=== PATIENT | male | born 1955 | race Caucasian/White ===

== ENCOUNTER → 2016-06-19 | Outpatient (CLI) | payer MEDICARE ==
[~2016-06-19] MED LIST: ACDPT PO; ALPR0.5T7 PO; ALPR0.5T72 PO; ASP81CT PO; ASPI-983 PO; ATOR40TA PO; ATOR80TA76 PO; CARV3.12 PO; CARV3.122 PO; CARV6.252 PO; CLOP75TA69 PO; D50KC PO; DIAZ10TA PO; FELO10TA PO; FENO134C PO; FENO145T2 PO; FURO-124 PO; FURO40TA4 PO; GLMP4T PO; HYDR-3922 PO; HYDR12.570 PO; INSU100I23 SQ; INSU100V13 IJ; INSU100V6 SQ; INSU300I SQ; ISM60TCR PO; KCL10CCR PO; KRIL1CAP22 PO; LISI10TA PO; LORTAB 5MG PO; MAGN400T39 PO; MECL-124 PO; MULT-850 PO; NAPR220C11 PO; NITR0.4T12 SL; OMEG1CAP51 PO; RAMI10CA PO; SRTR100T PO; TEST90SO TD; [UNRECOGNIZED DRUG - CODE] IM; [UNRECOGNIZED DRUG - OTHER]
--- NOTE | 2016-06-19 13:33 | Diagnostic Imaging Report ---
INDICATION: Wheezing. Shortness of breath with cough. COMPARISON: 11/20/2015. FINDINGS: There is noted azygos lobe on the right. The lungs are well aerated. There are no infiltrates on today's exam. No masses. The heart is not enlarged. No pulmonary edema. No hilar adenopathy. No pneumothorax or pleural effusion. No air trapping or interstitial lung disease demonstrated. IMPRESSION: No acute abnormalities are present. Dictated by: Dictated on workstation # [id number]
== END ==
LOC: RAD 12:54
PROVIDERS: ATTEND Nurse Practitioner Family
DX: R05 Cough (principal)
CPT/HCPCS: 71020

== ENCOUNTER 2016-09-14 14:16 | Inpatient (IN) | payer MEDICARE ==
[2016-09-14] VITALS (10 sets, daily range): BP systolic 107–176; BP diastolic 59–115
[~2016-09-14] VITALS: Ht 167.6 cm; Wt 88.5 kg
[2016-09-14] MEDS ORDERED: NS IV 1000 ML 2,000 ML ONE (15:11)
[2016-09-14] MEDS ORDERED: NS IV 1000 ML 1,000 ML IV ONE ×2 (15:45)
--- NOTE | 2016-09-14 16:00 | Progress Note-Hospitalist ---
Standard Progress Note Progress Notes/Assess & Plan Date Seen 09/14/16 Time Seen by Provider: 15:58 Assess & Plan/Chief Complaint The patient is a 61-year-old white male diabetic. He presented to Dr. Cuevas' s office earlier today reporting that he had not taken his insulin for several days. He reported nausea and vomiting. Dr. Cuevas's office glucometers capable of reading blood sugars to 600 and his was greater than that. He was admitted here in October 2015 in a similar state of affairs with the hyperosmolar hyperglycemia. It was agreed that the would be sent here to be admitted to the ICU for an insulin drip and fluid. PHYSICAL EXAMINATION: He is in elderly appearing white male. He is alert and oriented. There is no odor of ketones. Lungs are clear to auscultation. CV is regular without murmur. Abdomen is obese. No masses are noted. Extremities are symmetric without edema. Laboratory: Initial blood sugar was 806. Creatinine was 2.52. Sodium 120. CO2 22. These findings are consistent with hyperosmolar diabetes. Impression: Diabetes mellitus type II with hyper osmolarity. 2.hyponatremia. 3.acute on chronic renal insufficiency. 4.CO2 of 22 rules out significant acidosis. Plan: Insulin drip. Aggressive fluid replacement. MARLENI SHARMA MD Sep 14, 2016 16:00
[2016-09-14 16:10] LABS: BASOPHILS # (AUTO) 0.1 10^3/uL (0.0-0.1); BASOPHILS % (AUTO) 1 % (0-10); EOSINOPHILS % (AUTO) 0 % (0-10); LYMPHOCYTES # (AUTO) 1.5 X 10^3 (1.0-4.0); LYMPHOCYTES % (AUTO) 13 % (12-44); MEAN CORPUSCULAR HEMOGLOBIN 30 PG (25-34); MEAN CORPUSCULAR HGB CONC 35 G/DL (32-36); MEAN CORPUSCULAR VOLUME 84 FL (80-99); MEAN PLATELET VOLUME 11.8 FL (7.4-10.4); MONOCYTES # (AUTO) 0.7 X 10^3 (0.0-1.0); MONOCYTES % (AUTO) 6 % (0-12); NEUTROPHILS # (AUTO) 9.1 X 10^3 (1.8-7.8); NEUTROPHILS % (AUTO) 80 % (42-75); PLATELET COUNT 243 10^3/uL (130-400); RED BLOOD COUNT 5.47 10^6/uL (4.35-5.85); RED CELL DISTRIBUTION WIDTH 12.7 % (10.0-14.5); WHITE BLOOD COUNT 11.4 10^3/uL (4.3-11.0)
[2016-09-14] MEDS ORDERED: CATHETER FLUSH 10 ML SYR IV PRN (16:15)
[2016-09-14 16:41] LABS: ALBUMIN 3.9 GM/DL (3.2-4.5); BILIRUBIN,TOTAL 0.7 MG/DL (0.1-1.0); CALCIUM 9.8 MG/DL (8.5-10.1); CREATININE SERUM 2.52 MG/DL (0.60-1.30); POTASSIUM 5.3 MMOL/L (3.6-5.0); TOTAL PROTEIN 7.8 GM/DL (6.4-8.2)
[2016-09-14] MEDS: inSUlin REGULAR TPN/DRIP ONLY 250 UNITS in NORMAL SALINE 250 ML IV SCH (17:02)
[2016-09-14 21:02] LABS: CALCIUM 9.3 MG/DL (8.5-10.1); CREATININE SERUM 2.06 MG/DL (0.60-1.30); POTASSIUM 3.7 MMOL/L (3.6-5.0)
[2016-09-15] VITALS (17 sets, daily range): BP systolic 102–189; BP diastolic 61–100
[2016-09-15 01:10] LABS: CREATININE SERUM 1.81 MG/DL (0.60-1.30); POTASSIUM 3.5 MMOL/L (3.6-5.0)
[2016-09-15] MEDS: inSUlin (REGULAR) HUMAN 1 UNIT/0.01 ML (CHARGE PER UNIT) SC SCH ×4 (02:10→13:30)
[2016-09-15 04:28] LABS: CALCIUM 8.9 MG/DL (8.5-10.1); CREATININE SERUM 1.68 MG/DL (0.60-1.30); POTASSIUM 3.4 MMOL/L (3.6-5.0)
[2016-09-15] MEDS: POTASSIUM CL 10MEQ/50ML IVPB 50 ML IV SCH ×2 (05:00→05:48)
[2016-09-15 05:28] LABS: MAGNESIUM 1.8 MG/DL (1.8-2.4); PHOSPHORUS 3.9 MG/DL (2.3-4.7)
[2016-09-15] MEDS ORDERED: KCL 20 MEQ TAB (K-DUR) PO SCH (06:00)
[2016-09-15] MEDS ORDERED: MAGNESIUM 1 GM/100 ML IVPB 100 ML IV SCH (06:00)
[2016-09-15] MEDS ORDERED: KCL 20 MEQ TAB (K-DUR) PO ONE (06:00)
[2016-09-15 08:37] LABS: CALCIUM 9.1 MG/DL (8.5-10.1); CREATININE SERUM 1.59 MG/DL (0.60-1.30); POTASSIUM 3.7 MMOL/L (3.6-5.0)
[2016-09-15] MEDS ORDERED: ESCI20TA45 PO (11:41)
[2016-09-15] MEDS ORDERED: MECL-106 PO (11:41)
[2016-09-15 12:27] LABS: CALCIUM 9.2 MG/DL (8.5-10.1); CREATININE SERUM 1.72 MG/DL (0.60-1.30); POTASSIUM 3.9 MMOL/L (3.6-5.0)
--- NOTE | 2016-09-15 15:34 | History & Physical-Hospitalist ---
HPI History of Present Illness: HPI/Chief Complaint The patient is a 61-year-old white male who was admitted to the hospitalist service after a phone call from the his community physician Dr. Cuevas. Dr. Cuevas stated that the patient had come to the office reporting feeling ill with nausea and vomiting. He admitted to not having taken insulin in several days. Blood sugar at the office showed it to be greater than 600 which is the limits of the device. He had been admitted here in October 2015 after a similar presentation. His blood sugar at that time was slightly over 1100 without acidosis but confusion as he did not appear to be so confused at this time he was transported to the hospital for direct admission by his mother. He was unable to give any legitimate reason for why he had not been taking his medication. Past history includes a long history of poor control and noncompliance. His previous evidence of coronary artery disease and has multiple coronary stenting. Is also known to have hyperlipidemia and hypertension. Source: patient, family Exam Limitations: no limitations Date Seen 09/15/16 Time Seen by Provider: 15:29 Attending Physician Moe Sharma MD PCP Misael Cuevas DO Referring Physician Date of Admission Sep 14, 2016 at 14:34 Home Medications & Allergies Home Medications Reviewed patient Home Medication Reconciliation Form Allergies Allergies Coded Allergies No Known Drug Allergies (Unverified03/29/15) Past Kpdoffr-Xtooyw-Rzwvjl Hx Patient Social History Alcohol Use: Denies Use Recreational Drug Use: No Smoking Status: Former Smoker Type Used: Cigarettes Physical Abuse Screen: No Sexual Abuse: No Recent Foreign Travel: No Contact w/other who traveled: No Recent Hopitalizations: No Recent Infectious Disease Expo: No Immunizations Up To Date Date of Influenza Vaccine: Jan 29, 2006 Seasonal Allergies Seasonal Allergies: No Surgeries HX Surgeries: Yes (STENTS X6, GB AND APPY AT THE SAME TIME, WISDOM TEETH) Respiratory Hx Respiratory Disorders: No Cardiovascular Hx Cardiovascular Disorders: Yes (CAD, ANGINA, HEART CATH, STENTS X6, AL) Neurological Hx Neurological Disorders: No Reproductive System Hx Reproductive Disorders: No Genitourinary Hx Genitourinary Disorders: Yes ("STATES BAD KIDNEYS DUE TO DIABETES") Gastrointestinal Hx Gastrointestinal Disorders: Yes Musculoskeletal Hx Musculoskeletal Disorders: No Endocrine Hx Endocrine Disorders: Yes HEENT HX ENT Disorders: No Psychosocial Hx Psychiatric Problems: Yes Integumentary HX Skin/Integumentary Disorder: No Blood Transfusions Hx Blood Disorders: No Review of Systems Constitutional: see HPI EENTM: blurred vision Respiratory: no symptoms reported Cardiovascular: no symptoms reported Gastrointestinal: loss of appetite, nausea Genitourinary: frequency Musculoskeletal: muscle weakness Skin: no symptoms reported Psychiatric/Neurological: No Symptoms Reported Physical Exam Physical Exam Vital Signs Vital Sign - Last 12Hours 09/14/16 09/14/16 09/14/16 14:58 15:30 16:12 Temp 98.3 Pulse 78 Resp 10 B/P (MAP) 176/106 Pulse Ox 93 O2 Delivery Room Air Capillary Refill : Less Than 3 Seconds General Appearance: Mild Distress Eyes: Bilateral Eye Normal Inspection HEENT: Normal ENT Inspection Neck: Full Range of Motion, Normal Inspection, Non Tender, Supple, Carotid Bruit Respiratory: Chest Non Tender, Lungs Clear, Normal Breath Sounds, No Accessory Muscle Use, No Respiratory Distress Cardiovascular: Regular Rate, Rhythm, No Edema, No Gallop, No JVD, No Murmur, Normal Peripheral Pulses Extremity: Normal Capillary Refill, Normal Inspection, Normal Range of Motion, Non Tender, No Calf Tenderness, No Pedal Edema Neurologic/Psychiatric: Alert, Oriented x3, No Motor/Sensory Deficits, Normal Mood/Affect, Other (appears mentally slow) Skin: Normal Color, Warm/Dry Results Results/Procedures Lab Laboratory Tests 09/14/16 16:00 09/14/16 20:08 09/15/16 00:26 09/15/16 03:07 09/15/16 08:09 09/15/16 11:59 Assessment/Plan Admission Diagnosis 1.diabetes mellitus with hyper osmolar state. 2.no ketosis or evidence of acidosis. 3.past history of arteriosclerotic heart disease with previous stenting. 4.hypertension by history. 5.hyperlipidemia. Assessment and Plan Rehydration and low-dose insulin drip. Clinical Quality Measures DVT/VTE Risk/Contraindication: Risk Factor Score Per Nursin RFS Level Per Nursing on Admit: 1=Low/No VTE PPX MOE SHARMA MD Sep 15, 2016 15:34
[2016-09-15] MEDS: inSUlin REGULAR TPN/DRIP ONLY 250 UNITS in NORMAL SALINE 250 ML IV SCH (15:39)
[2016-09-15] MEDS ORDERED: ALPRAZolam 0.5 MG (XANAX) TAB PO PRN (15:45)
[2016-09-15] MEDS ORDERED: NITROGLYCERIN SUBLINGUAL 0.4 MG TAB (NITROSTAT) SL PRN (15:45)
[2016-09-15] MEDS: inSUlin ASPART (NovoLOG) 1 UNIT/0.01 ML (CHARGE PER UNIT) SC SCH (17:35)
[2016-09-15] MEDS: inSUlin DETERMIR 1 UNIT/0.01 ML (LEVEMIR) CHARGE PER UNIT SQ SCH (20:55)
[2016-09-15] MEDS: CARVEDILOL 3.125 MG (COREG) TABLET PO SCH (20:57)
[2016-09-15] MEDS ORDERED: ATORVASTATIN 80 MG (LIPITOR) TABLET PO SCH (21:00)
[2016-09-15] MEDS: MECLIZINE 25 MG (ANTIVERT) TAB PO SCH (21:03)
[2016-09-16 06:00] VITALS: BP 136/76
[2016-09-16] MEDS: MECLIZINE 25 MG (ANTIVERT) TAB PO SCH (06:33)
[2016-09-16] MEDS ORDERED: MAGNESIUM OXIDE (MAG-OX)400 MG TAB PO SCH (07:00)
[2016-09-16] MEDS: inSUlin ASPART (NovoLOG) 1 UNIT/0.01 ML (CHARGE PER UNIT) SC SCH (07:29)
[2016-09-16] MEDS: inSUlin DETERMIR 1 UNIT/0.01 ML (LEVEMIR) CHARGE PER UNIT SQ SCH (08:41)
[2016-09-16] MEDS: CARVEDILOL 3.125 MG (COREG) TABLET PO SCH (08:41)
[2016-09-16 08:46] VITALS: BP 186/82
[2016-09-16] MEDS ORDERED: CLOPIDOGREL 75 MG (PLAVIX) TABLET PO SCH (09:00)
[2016-09-16] MEDS ORDERED: FENOFIBRATE 134 MG (LOFIBRA) CAPSULE PO SCH (09:00)
[2016-09-16] MEDS ORDERED: ASPIRIN E.C. 81 MG (ECOTRIN) TAB PO SCH (09:00)
[2016-09-16] MEDS ORDERED: ISOSORBIDE MONONITRATE 60 MG (IMDUR) TAB PO SCH (09:00)
--- NOTE | 2016-09-16 11:06 | Discharge Summary-Hospitalist ---
Diagnosis/Chief Complaint Date of Admission Sep 14, 2016 at 14:34 Date of Discharge Discharge Date: Sep 16, 2016 Admission Diagnosis 1.diabetes mellitus with hyper osmolar state no ketosis or evidence of acidosis. 3.past history of arteriosclerotic heart disease with previous stenting. 4.hypertension by history. 5.hyperlipidemia. Discharge Diagnosis 1.diabetes mellitus with hyper osmolar state no ketosis or evidence of acidosis due to noncompliance with insulin that he has supply at home. 3.past history of arteriosclerotic heart disease with previous stenting. 4.hypertension by history. 5.hyperlipidemia. Reason Hospital Visit/Course The patient is a 61-year-old white male who was admitted to the hospitalist service after a phone call from the his community physician Dr. Cuevas. Dr. Cuevas stated that the patient had come to the office reporting feeling ill with nausea and vomiting. He admitted to not having taken insulin in several days. Blood sugar at the office showed it to be greater than 600 which is the limits of the device. He had been admitted here in October 2015 after a similar presentation. His blood sugar at that time was slightly over 1100 without acidosis but confusion as he did not appear to be so confused at this time he was transported to the hospital for direct admission by his mother. He was unable to give any legitimate reason for why he had not been taking his medication. Past history includes a long history of poor control and noncompliance. His previous evidence of coronary artery disease and has multiple coronary stenting. Is also known to have hyperlipidemia and hypertension. 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 Pt confirms having help at home Pt is confused about how to time his medication. I informed him to spread out his meds over the day so as not to upset his stomach No fever, vital signs stable, pleasant, improved Regular rate and rhythm, clear to auscultation bilaterally No edema normal range of motion Plan: Close follow up with Dr. Cuevas Include information on how to spread out his medications during the day in DC instructions Scribed by Lucia Esquivel under the direct supervision of Dr. Mark. Hospital course: Patient had a brief hospital course he had a similar hospital admission back in October 2015 for the exact same issue he declined to give me a reason why he was not taking his insulin of which he has a plenty of the supply at home. overall he responded to gentle IV insulin drip blood sugars were labile but no hypoglycemic episodes and since he has a supply of insulin at home he was okay with discharge home with close follow-up of Dr. Cuevas. I attempted to call Dr. Cuevas's office but could not confer with him at that time. Discharge Summary Discharge Physical Examination Allergies: Coded Allergies: No Known Drug Allergies (Unverified , 03/29/15) Vitals & I&Os Vital Signs Date Time Temp Pulse Resp B/P (MAP) Pulse Ox O2 Delivery O2 Flow Rate FiO2 09/16/16 08:46 97.7 85 16 186/82 97 Room Air Hospital Course Labs (last 24 hrs) Laboratory Tests 09/15/16 11:59: Sodium Level 131L, Potassium Level 3.9, Chloride Level 99, Carbon Dioxide Level 18L, Anion Gap 14, Blood Urea Nitrogen 29H, Creatinine 1.72H, Estimat Glomerular Filtration Rate 40, BUN/Creatinine Ratio 17, Glucose Level 276H, Calcium Level 9.2 09/15/16 13:17: Glucometer 308H 09/15/16 17:34: Glucometer 216H 09/15/16 20:51: Glucometer 409*H Discharge Home Medications: Active Scripts Active Reported Meclizine HCl 25 Mg Tablet 25 Mg PO Q8H Escitalopram Oxalate 20 Mg Tablet 20 Mg PO DAILY Alprazolam 0.5 Mg Tablet 0.5 Mg PO BID PRN Aspirin EC (Aspirin) 81 Mg Tablet.dr 81 Mg PO DAILY Humalog Kwikpen (Insulin Lispro) 100 Unit/1 Ml Insuln.pen 5 Unit SQ AC DOES NOT ALWAYS USE Valium (Diazepam) 10 Mg Tablet 10 Mg PO HS PRN Coreg (Carvedilol) 3.125 Mg Tablet 3.125 Mg PO BID Isosorbide Mononitrate ER (Isosorbide Mononitrate) 60 Mg Tab 60 Mg PO DAILY Plavix (Clopidogrel Bisulfate) 75 Mg Tablet 75 Mg PO DAILY Magnesium (Magnesium Oxide) 400 Mg Tablet 400 Mg PO DAILY Atorvastatin Calcium 80 Mg Tablet 80 Mg PO HS Fenofibrate (Fenofibrate,Micronized) 134 Mg Capsule 134 Mg PO DAILY Megared Hartwell-3 Krill Oil Sfgl (Krill/Om-3/Dha/Epa/Phospho/Ast) 1 Each Capsule 1 ,000 Mg PO DAILY Toujeo Solostar (Insulin Glargine,Hum.rec.anlog) 300 Unit/1 Ml Insuln.pen 15 Unit SQ BID Vitamin D (Ergocalciferol) 50,000 Unit Capsule 50,000 Unit PO SA Nitroquick (Nitroglycerin) 0.4 Mg Tab.subl 0.4 Mg SL UD PRN Instructions to patient/family Please see electonic discharge instructions given to patient. Clinical Quality Measures DVT/VTE Risk/Contraindication: Risk Factor Score Per Nursin RFS Level Per Nursing on Admit: 1=Low/No VTE PPX TRACEY MARK DO Sep 16, 2016 11:06
--- NOTE | 2016-09-16 14:00 | Physician Query Clarification ---
PQ-Intro New Diagnosis Admission/Discharge Admission Date: Sep 14, 2016 at 14:34 Discharge Date: Sep 16, 2016 at 11:20 The medical record reflects the following clinical scenario: History/Risk Factors: Diabetes type II with hyperosmolar state. Non compliance with insulin Clinical Findings: Sodium level 120 Treatment: IV sodium chloride replacement Question: What condition best reflects the above clinical scenario? Please document below. 1. Hyponatremia. 2. Abnormal sodium level of 120. 3. Other, with explanation of the clinical findings. 4. Clinically undetermined, no explanation for the clinical findings. PHYSICIAN RESPONSE What condition reflects above: Other, explanation/clinical finding (flase low sodium due to high glucose) In responding to this query, please exercise your independent professional judgment. The purpose of this communication is to more accurately reflect the complexity of your patients condition. The fact that a question is asked does not imply that any particular answer is desired or expected. Thank you for your timely response to this clarification. Requestors name: Fely Lang [facility] Phone # ext [phone] or [phone] THIS PHYSICIAN QUERY FORM IS A PERMANENT PART OF THE MEDICAL RECORD FELY LANG Sep 16, 2016 14:00 TRACEY SIDHU DO Sep 16, 2016 15:47
--- OUTSIDE RECORDS SUMMARY | 2016-09-24 19:34 | XMS REPORT | Continuity of Care Document ---
Author Author [facility] Organization [facility] Address Unknown Phone Unavailable Allergies Active Description Code Type Severity Reaction Onset Reported/Identified Relationship to Patient Clinical Status Yes clopidogrel [id number] Drug Allergy Mild HIVES 01/18/2010 Yes No Known Drug Allergies [id number] Drug Allergy Unknown N/ A 03/29/2015 Medications Problems Date Dx Coded Attending Type Code Diagnosis Diagnosed By 02/12/2014 TRAVIS LOWRY [employer] Ot 250.00 02/12/2014 TRAVIS LOWRY [employer] Ot 257.2 02/12/2014 TRAVIS LOWRY [employer] Ot 275.2 02/12/2014 TRAVIS LOWRY [employer] Ot E947.9 03/14/2014 TRAVIS LOWRY [employer] Ot 796.4 04/02/2014 TRAVIS LOWRY [employer] Ot 250.00 04/02/2014 TRAVIS LOWRY [employer] Ot 401.9 04/02/2014 TRAVIS LOWRY [employer] Ot 780.79 04/02/2014 TRAVIS LWORY [employer] Ot V58.69 04/18/2014 Ot 794.39 04/18/2014 Ot V58.69 07/06/2014 TRAVIS LOWRY [employer] Ot 414.00 07/06/2014 TRAVIS LOWRY [employer] Ot 571.8 07/06/2014 TRAVIS LOWRY [employer] Ot 729.1 12/26/2014 ALESIA LOWRY DO Ot 786.09 12/26/2014 ALESIA LOWRY DO Ot 786.7 03/08/2015 TRAVIS LOWRY [employer] Ot E11.9 03/08/2015 TRAVIS LOWRY [employer] Ot E55.9 03/08/2015 TRAVIS LOWRY [employer] Ot E78.5 03/08/2015 TRAVIS LOWRY [employer] Ot K76.0 04/01/2015 RITA CONTEH, LEISA M Ot K57.90 04/01/2015 RITA CONTEH, LEISA M Ot K63.5 04/01/2015 RITA CONTEH, LEISA M Ot K64.8 04/01/2015 RITA CONTEH, LEISA M Ot Z79.02 04/04/2015 RITA CONTEH, LEISA M Ot Z01.818 04/26/2015 ESSENCE BERMUDEZ ALESIA J Ot R19.7 06/18/2015 ESSENCE BERMUDEZ ALESIA J Ot R19.7 DIARRHEA, UNSPECIFIED 06/24/2015 ALESIA LOWRY DO J Ot R19.7 DIARRHEA, UNSPECIFIED 08/16/2015 TRAVIS LOWRY [employer] Ot E11.9 TYPE 2 DIABETES MELLITUS WITHOUT COMPLIC 08/16/2015 TRAVIS LOWRYP Ot N28.9 DISORDER OF KIDNEY AND URETER, UNSPECIFI 11/20/2015 MARLENI SHARMA MD Ot E11.65 TYPE 2 DIABETES MELLITUS WITH HYPERGLYCE 11/20/2015 MARLENI SHARMA MD Ot E66.9 OBESITY, UNSPECIFIED 11/20/2015 MARLENI SHARMA MD Ot E78.5 HYPERLIPIDEMIA, UNSPECIFIED 11/20/2015 MARLENI SHARMA MD Ot E87.1 HYPO-OSMOLALITY AND HYPONATREMIA 11/20/2015 MARLENI SHARMA MD Ot I10 ESSENTIAL (PRIMARY) HYPERTENSION 11/20/2015 MARLENI SHARMA MD Ot I12.9 HYPERTENSIVE CHRONIC KIDNEY DISEASE W ST 11/20/2015 MARLENI SHARMA MD Ot I25.119 ATHSCL HEART DISEASE OF [place] COR ART W 11/20/2015 MARLENI SHARMA MD Ot I25.2 OLD MYOCARDIAL INFARCTION 11/20/2015 MARLENI SHARMA MD Ot N17.9 ACUTE KIDNEY FAILURE, UNSPECIFIED 11/20/2015 MARLENI SHARMA MD Ot N18.9 CHRONIC KIDNEY DISEASE, UNSPECIFIED 11/20/2015 MARLENI SHARMA MD Ot R00.8 OTHER ABNORMALITIES OF HEART BEAT 11/20/2015 MARLENI SHARMA MD Ot Z68.31 BODY MASS INDEX (BMI) 31.0-31.9, ADULT 11/20/2015 EDITH CONTEH, MARLENI Rajan Ot Z91.19 PATIENT'S NONCOMPLIANCE W OT MEDICAL TR 11/20/2015 MARLENI SHARMA MD, Ot Z95.5 PRESENCE OF CORONARY ANGIOPLASTY IMPLANT 07/13/2016 TRAVIS LOWRY [employer] Ot R05 COUGH Procedures Results Test Result Range Complete blood count (CBC) with automated white blood cell (WBC) differential - 11/18/15 16:45 Blood leukocytes automated count (number/volume) 9.8 10*3/ uL 4.3-11.0 Blood erythrocytes automated count (number/volume) 5.33 10*6 /uL 4.35-5.85 Venous blood hemoglobin measurement (mass/volume) 15.8 g/dL 13.3-17.7 Blood hematocrit (volume fraction) 44 % 40-54 Automated erythrocyte mean corpuscular volume 83 [foz_us] 80-99 Automated erythrocyte mean corpuscular hemoglobin (mass per erythrocyte) 30 pg 25-34 Automated erythrocyte mean corpuscular hemoglobin concentration measurement ( mass/volume) 36 g/dL 32-36 Automated erythrocyte distribution width ratio 12.7 % 10.0-14.5 Automated blood platelet count (count/volume) 256 10*3/uL 130-400 Automated blood platelet mean volume measurement 11.5 [foz_ us] 7.4-10.4 Automated blood neutrophils/100 leukocytes 68 % 42-75 Automated blood lymphocytes/100 leukocytes 22 % 12-44 Blood monocytes/100 leukocytes 7 % 0-12 Automated blood eosinophils/100 leukocytes 2 % 0-10 Automated blood basophils/100 leukocytes 1 % 0-10 Blood neutrophils automated count (number/volume) 6.7 10*3 1.8-7.8 Blood lymphocytes automated count (number/volume) 2.2 10*3 1.0-4.0 Blood monocytes automated count (number/volume) 0.7 10*3 0.0-1.0 Automated eosinophil count 0.2 10*3/uL 0.0-0.3 Automated blood basophil count (count/volume) 0.1 10*3/uL 0.0-0.1 PT panel in platelet poor plasma by coagulation assay - 11/18/15 16:45 Prothrombin time (PT) in platelet poor plasma by coagulation assay 13.0 s 12.2-14.7 INR in platelet poor plasma or blood by coagulation assay 1.0 0.8-1.4 Activated partial thromboplastin time (aPTT) in platelet poor plasma bycoagulation assay - 11/18/15 16:45 Activated partial thromboplastin time (aPTT) in platelet poor plasma bycoagulation assay 30 s 24-35 Comprehensive metabolic panel - 11/18/15 16:45 Serum or plasma sodium measurement (moles/volume) 119 mmol/ L 135-145 Serum or plasma potassium measurement (moles/volume) 4.4 mmol/L 3.6-5.0 Serum or plasma chloride measurement (moles/volume) 79 mmol/ L 98-107 Carbon dioxide 21 mmol/L 21-32 Serum or plasma anion gap determination (moles/volume) 19 mmol/L 5-14 Serum or plasma urea nitrogen measurement (mass/volume) 17 mg/dL 7-18 Serum or plasma creatinine measurement (mass/volume) 2.54 mg /dL 0.60-1.30 Serum or plasma urea nitrogen/creatinine mass ratio 7 NRG Serum or plasma creatinine measurement with calculation of estimated glomerular filtration rate 26 NRG Serum or plasma glucose measurement (mass/volume) 917 mg/dL 70-105 Serum or plasma calcium measurement (mass/volume) 9.4 mg/dL 8.5-10.1 Serum or plasma total bilirubin measurement (mass/volume) 0.8 mg/dL 0.1-1.0 Serum or plasma alkaline phosphatase measurement (enzymatic activity/volume) 178 U/L 40-136 Serum or plasma aspartate aminotransferase measurement (enzymatic activity/ volume) 27 U/L 5-34 Serum or plasma alanine aminotransferase measurement (enzymatic activity/volume ) 36 U/L 0-55 Serum or plasma protein measurement (mass/volume) 7.7 g/dL 6.4-8.2 Serum or plasma albumin measurement (mass/volume) 4.0 g/dL 3.2-4.5 Magnesium - 11/18/15 16:45 Magnesium 2.3 mg/dL 1.8-2.4 Serum or plasma troponin i.cardiac measurement (mass/volume) - 11/18/15 16:45 Serum or plasma troponin i.cardiac measurement (mass/volume) < ng/mL <0.30 Myoglobin, serum - 11/18/15 16:45 Myoglobin, serum 150.3 ng/mL 10.0-92.0 Serum or plasma amylase measurement (enzymatic activity/volume) - 11/18/15 16: 45 Serum or plasma amylase measurement (enzymatic activity/volume) 45 U/L 25-125 Lipase - 11/18/15 16:45 Lipase 17 U/L 8-78 Hemoglobin A1c - 11/18/15 16:45 Hemoglobin A1c 13.2 % 4.5-6.2 Capillary blood glucose measurement by glucometer (mass/volume) - 11/18/15 18: 41 Capillary blood glucose measurement by glucometer (mass/volume) > mg/dL 70-110 Whole blood basic metabolic panel - 11/18/15 19:06 Serum or plasma sodium measurement (moles/volume) 124 mmol/ L 135-145 Serum or plasma potassium measurement (moles/volume) 4.0 mmol/L 3.6-5.0 Serum or plasma chloride measurement (moles/volume) 90 mmol/ L 98-107 Carbon dioxide 20 mmol/L 21-32 Serum or plasma anion gap determination (moles/volume) 14 mmol/L 5-14 Serum or plasma urea nitrogen measurement (mass/volume) 16 mg/dL 7-18 Serum or plasma creatinine measurement (mass/volume) 1.98 mg /dL 0.60-1.30 Serum or plasma urea nitrogen/creatinine mass ratio 8 NRG Serum or plasma creatinine measurement with calculation of estimated glomerular filtration rate 34 NRG Serum or plasma glucose measurement (mass/volume) 663 mg/dL 70-105 Serum or plasma calcium measurement (mass/volume) 8.8 mg/dL 8.5-10.1 Capillary blood glucose measurement by glucometer (mass/volume) - 11/18/15 20: 19 Capillary blood glucose measurement by glucometer (mass/volume) 551 mg/dL 70-110 Complete urinalysis with reflex to culture - 11/18/15 20:20 Urine color determination YELLOW NRG Urine clarity determination CLEAR NRG Urine pH measurement by test strip 5 5- 9 Specific gravity of urine by test strip 1.010 1.016-1.022 Urine protein assay by test strip, semi-quantitative NEGATIVE NEGATIVE Urine glucose detection by automated test strip 4+ NEGATIVE Erythrocytes detection in urine sediment by light microscopy NEGATIVE NEGATIVE Urine ketones detection by automated test strip NEGATIVE NEGATIVE Urine nitrite detection by test strip NEGATIVE NEGATIVE Urine total bilirubin detection by test strip NEGATIVE NEGATIVE Urine urobilinogen measurement by automated test strip (mass/volume) NORMAL NORMAL Urine leukocyte esterase detection by dipstick NEGATIVE NEGATIVE Automated urine sediment erythrocyte count by microscopy (number/high power field) NONE NRG Automated urine sediment leukocyte count by microscopy (number/high power field ) NONE NRG Bacteria detection in urine sediment by light microscopy NONE NRG Squamous epithelial cells detection in urine sediment by light microscopy RARE NRG Crystals detection in urine sediment by light microscopy NONE NRG Casts detection in urine sediment by light microscopy NONE NRG Mucus detection in urine sediment by light microscopy NEGATIVE NRG Complete urinalysis with reflex to culture NO NRG Whole blood basic metabolic panel - 11/18/15 20:44 Serum or plasma sodium measurement (moles/volume) 128 mmol/ L 135-145 Serum or plasma potassium measurement (moles/volume) 3.6 mmol/L 3.6-5.0 Serum or plasma chloride measurement (moles/volume) 92 mmol/ L 98-107 Carbon dioxide 21 mmol/L 21-32 Serum or plasma anion gap determination (moles/volume) 15 mmol/L 5-14 Serum or plasma urea nitrogen measurement (mass/volume) 16 mg/dL 7-18 Serum or plasma creatinine measurement (mass/volume) 2.00 mg /dL 0.60-1.30 Serum or plasma urea nitrogen/creatinine mass ratio 8 NRG Serum or plasma creatinine measurement with calculation of estimated glomerular filtration rate 34 NRG Serum or plasma glucose measurement (mass/volume) 527 mg/dL 70-105 Serum or plasma calcium measurement (mass/volume) 8.5 mg/dL 8.5-10.1 Capillary blood glucose measurement by glucometer (mass/volume) - 11/18/15 22: 01 Capillary blood glucose measurement by glucometer (mass/volume) 395 mg/dL 70-110 Capillary blood glucose measurement by glucometer (mass/volume) - 11/18/15 22: 56 Capillary blood glucose measurement by glucometer (mass/volume) 315 mg/dL 70-110 Capillary blood glucose measurement by glucometer (mass/volume) - 11/19/15 00: 16 Capillary blood glucose measurement by glucometer (mass/volume) 209 mg/dL 70-110 Capillary blood glucose measurement by glucometer (mass/volume) - 11/19/15 00: 58 Capillary blood glucose measurement by glucometer (mass/volume) 202 mg/dL 70-110 Whole blood basic metabolic panel - 11/19/15 00:58 Serum or plasma sodium measurement (moles/volume) 132 mmol/ L 135-145 Serum or plasma potassium measurement (moles/volume) 3.1 mmol/L 3.6-5.0 Serum or plasma chloride measurement (moles/volume) 97 mmol/ L 98-107 Carbon dioxide 22 mmol/L 21-32 Serum or plasma anion gap determination (moles/volume) 13 mmol/L 5-14 Serum or plasma urea nitrogen measurement (mass/volume) 13 mg/dL 7-18 Serum or plasma creatinine measurement (mass/volume) 1.53 mg /dL 0.60-1.30 Serum or plasma urea nitrogen/creatinine mass ratio 8 NRG Serum or plasma creatinine measurement with calculation of estimated glomerular filtration rate 46 NRG Serum or plasma glucose measurement (mass/volume) 217 mg/dL 70-105 Serum or plasma calcium measurement (mass/volume) 8.4 mg/dL 8.5-10.1 Capillary blood glucose measurement by glucometer (mass/volume) - 11/19/15 02: 19 Capillary blood glucose measurement by glucometer (mass/volume) 252 mg/dL 70-110 Capillary blood glucose measurement by glucometer (mass/volume) - 11/19/15 03: 03 Capillary blood glucose measurement by glucometer (mass/volume) 219 mg/dL 70-110 Capillary blood glucose measurement by glucometer (mass/volume) - 11/19/15 04: 02 Capillary blood glucose measurement by glucometer (mass/volume) 254 mg/dL 70-110 Complete blood count (CBC) with automated white blood cell (WBC) differential - 11/19/15 04:13 Blood leukocytes automated count (number/volume) 8.3 10*3/ uL 4.3-11.0 Blood erythrocytes automated count (number/volume) 4.67 10*6 /uL 4.35-5.85 Venous blood hemoglobin measurement (mass/volume) 14.0 g/dL 13.3-17.7 Blood hematocrit (volume fraction) 39 % 40-54 Automated erythrocyte mean corpuscular volume 83 [foz_us] 80-99 Automated erythrocyte mean corpuscular hemoglobin (mass per erythrocyte) 30 pg 25-34 Automated erythrocyte mean corpuscular hemoglobin concentration measurement ( mass/volume) 36 g/dL 32-36 Automated erythrocyte distribution width ratio 12.5 % 10.0-14.5 Automated blood platelet count (count/volume) 234 10*3/uL 130-400 Automated blood platelet mean volume measurement 10.9 [foz_ us] 7.4-10.4 Automated blood neutrophils/100 leukocytes 51 % 42-75 Automated blood lymphocytes/100 leukocytes 36 % 12-44 Blood monocytes/100 leukocytes 7 % 0-12 Automated blood eosinophils/100 leukocytes 5 % 0-10 Automated blood basophils/100 leukocytes 1 % 0-10 Blood neutrophils automated count (number/volume) 4.3 10*3 1.8-7.8 Blood lymphocytes automated count (number/volume) 3.0 10*3 1.0-4.0 Blood monocytes automated count (number/volume) 0.5 10*3 0.0-1.0 Automated eosinophil count 0.4 10*3/uL 0.0-0.3 Automated blood basophil count (count/volume) 0.1 10*3/uL 0.0-0.1 Comprehensive metabolic panel - 11/19/15 04:13 Serum or plasma sodium measurement (moles/volume) 132 mmol/ L 135-145 Serum or plasma potassium measurement (moles/volume) 3.7 mmol/L 3.6-5.0 Serum or plasma chloride measurement (moles/volume) 100 mmol /L 98-107 Carbon dioxide 21 mmol/L 21-32 Serum or plasma anion gap determination (moles/volume) 11 mmol/L 5-14 Serum or plasma urea nitrogen measurement (mass/volume) 13 mg/dL 7-18 Serum or plasma creatinine measurement (mass/volume) 1.48 mg /dL 0.60-1.30 Serum or plasma urea nitrogen/creatinine mass ratio 9 NRG Serum or plasma creatinine measurement with calculation of estimated glomerular filtration rate 48 NRG Serum or plasma glucose measurement (mass/volume) 224 mg/dL 70-105 Serum or plasma calcium measurement (mass/volume) 8.4 mg/dL 8.5-10.1 Serum or plasma total bilirubin measurement (mass/volume) 0.7 mg/dL 0.1-1.0 Serum or plasma alkaline phosphatase measurement (enzymatic activity/volume) 117 U/L 40-136 Serum or plasma aspartate aminotransferase measurement (enzymatic activity/ volume) 21 U/L 5-34 Serum or plasma alanine aminotransferase measurement (enzymatic activity/volume ) 26 U/L 0-55 Serum or plasma protein measurement (mass/volume) 6.1 g/dL 6.4-8.2 Serum or plasma albumin measurement (mass/volume) 3.2 g/dL 3.2-4.5 Serum or plasma phosphate measurement (mass/volume) - 11/19/15 04:13 Serum or plasma phosphate measurement (mass/volume) 2.7 mg/ dL 2.3-4.7 Magnesium - 11/19/15 04:13 Magnesium 2.0 mg/dL 1.8-2.4 Lipid 1996 panel - 11/19/15 04:13 Serum or plasma triglyceride measurement (mass/volume) 429 mg/dL <150 Serum or plasma cholesterol measurement (mass/volume) 250 mg /dL < 200 Serum or plasma cholesterol in HDL measurement (mass/volume) 26 mg/dL 40-60 Cholesterol in LDL [mass/volume] in serum or plasma by direct assay 147 mg/dL 1-129 Serum or plasma cholesterol in VLDL measurement (mass/volume) 86 mg/dL 5-40 Capillary blood glucose measurement by glucometer (mass/volume) - 11/19/15 04: 48 Capillary blood glucose measurement by glucometer (mass/volume) 210 mg/dL 70-110 Capillary blood glucose measurement by glucometer (mass/volume) - 11/19/15 06: 32 Capillary blood glucose measurement by glucometer (mass/volume) 200 mg/dL 70-110 Capillary blood glucose measurement by glucometer (mass/volume) - 11/19/15 07: 44 Capillary blood glucose measurement by glucometer (mass/volume) 183 mg/dL 70-110 Whole blood basic metabolic panel - 11/19/15 08:45 Serum or plasma sodium measurement (moles/volume) 132 mmol/ L 135-145 Serum or plasma potassium measurement (moles/volume) 4.3 mmol/L 3.6-5.0 Serum or plasma chloride measurement (moles/volume) 102 mmol /L 98-107 Carbon dioxide 22 mmol/L 21-32 Serum or plasma anion gap determination (moles/volume) 8 mmol/L 5-14 Serum or plasma urea nitrogen measurement (mass/volume) 11 mg/dL 7-18 Serum or plasma creatinine measurement (mass/volume) 1.41 mg /dL 0.60-1.30 Serum or plasma urea nitrogen/creatinine mass ratio 8 NRG Serum or plasma creatinine measurement with calculation of estimated glomerular filtration rate 51 NRG Serum or plasma glucose measurement (mass/volume) 204 mg/dL 70-105 Serum or plasma calcium measurement (mass/volume) 8.2 mg/dL 8.5-10.1 Capillary blood glucose measurement by glucometer (mass/volume) - 11/19/15 09: 58 Capillary blood glucose measurement by glucometer (mass/volume) 214 mg/dL 70-110 Capillary blood glucose measurement by glucometer (mass/volume) - 11/19/15 11: 16 Capillary blood glucose measurement by glucometer (mass/volume) 263 mg/dL 70-110 Capillary blood glucose measurement by glucometer (mass/volume) - 11/19/15 12: 08 Capillary blood glucose measurement by glucometer (mass/volume) 255 mg/dL 70-110 Capillary blood glucose measurement by glucometer (mass/volume) - 11/19/15 16: 26 Capillary blood glucose measurement by glucometer (mass/volume) 242 mg/dL 70-110 Capillary blood glucose measurement by glucometer (mass/volume) - 11/19/15 20: 03 Capillary blood glucose measurement by glucometer (mass/volume) 332 mg/dL 70-110 Complete blood count (CBC) with automated white blood cell (WBC) differential - 11/20/15 05:10 Blood leukocytes automated count (number/volume) 7.5 10*3/ uL 4.3-11.0 Blood erythrocytes automated count (number/volume) 4.44 10*6 /uL 4.35-5.85 Venous blood hemoglobin measurement (mass/volume) 13.3 g/dL 13.3-17.7 Blood hematocrit (volume fraction) 38 % 40-54 Automated erythrocyte mean corpuscular volume 86 [foz_us] 80-99 Automated erythrocyte mean corpuscular hemoglobin (mass per erythrocyte) 30 pg 25-34 Automated erythrocyte mean corpuscular hemoglobin concentration measurement ( mass/volume) 35 g/dL 32-36 Automated erythrocyte distribution width ratio 12.5 % 10.0-14.5 Automated blood platelet count (count/volume) 194 10*3/uL 130-400 Automated blood platelet mean volume measurement 11.3 [foz_ us] 7.4-10.4 Automated blood neutrophils/100 leukocytes 49 % 42-75 Automated blood lymphocytes/100 leukocytes 39 % 12-44 Blood monocytes/100 leukocytes 7 % 0-12 Automated blood eosinophils/100 leukocytes 4 % 0-10 Automated blood basophils/100 leukocytes 1 % 0-10 Blood neutrophils automated count (number/volume) 3.7 10*3 1.8-7.8 Blood lymphocytes automated count (number/volume) 2.9 10*3 1.0-4.0 Blood monocytes automated count (number/volume) 0.5 10*3 0.0-1.0 Automated eosinophil count 0.3 10*3/uL 0.0-0.3 Automated blood basophil count (count/volume) 0.1 10*3/uL 0.0-0.1 Whole blood basic metabolic panel - 11/20/15 05:10 Serum or plasma sodium measurement (moles/volume) 133 mmol/ L 135-145 Serum or plasma potassium measurement (moles/volume) 3.9 mmol/L 3.6-5.0 Serum or plasma chloride measurement (moles/volume) 103 mmol /L 98-107 Carbon dioxide 19 mmol/L 21-32 Serum or plasma anion gap determination (moles/volume) 11 mmol/L 5-14 Serum or plasma urea nitrogen measurement (mass/volume) 15 mg/dL 7-18 Serum or plasma creatinine measurement (mass/volume) 1.52 mg /dL 0.60-1.30 Serum or plasma urea nitrogen/creatinine mass ratio 10 NRG Serum or plasma creatinine measurement with calculation of estimated glomerular filtration rate 47 NRG Serum or plasma glucose measurement (mass/volume) 366 mg/dL 70-105 Serum or plasma calcium measurement (mass/volume) 8.2 mg/dL 8.5-10.1 Capillary blood glucose measurement by glucometer (mass/volume) - 11/20/15 11: 24 Capillary blood glucose measurement by glucometer (mass/volume) 244 mg/dL 70-110 Capillary blood glucose measurement by glucometer (mass/volume) - 09/14/16 15: 22 Capillary blood glucose measurement by glucometer (mass/volume) > mg/dL 70-110 Complete blood count (CBC) with automated white blood cell (WBC) differential - 09/14/16 16:00 Blood leukocytes automated count (number/volume) 11.4 10*3/ uL 4.3-11.0 Blood erythrocytes automated count (number/volume) 5.47 10*6 /uL 4.35-5.85 Venous blood hemoglobin measurement (mass/volume) 16.2 g/dL 13.3-17.7 Blood hematocrit (volume fraction) 46 % 40-54 Automated erythrocyte mean corpuscular volume 84 [foz_us] 80-99 Automated erythrocyte mean corpuscular hemoglobin (mass per erythrocyte) 30 pg 25-34 Automated erythrocyte mean corpuscular hemoglobin concentration measurement ( mass/volume) 35 g/dL 32-36 Automated erythrocyte distribution width ratio 12.7 % 10.0-14.5 Automated blood platelet count (count/volume) 243 10*3/uL 130-400 Automated blood platelet mean volume measurement 11.8 [foz_ us] 7.4-10.4 Automated blood neutrophils/100 leukocytes 80 % 42-75 Automated blood lymphocytes/100 leukocytes 13 % 12-44 Blood monocytes/100 leukocytes 6 % 0-12 Automated blood eosinophils/100 leukocytes 0 % 0-10 Automated blood basophils/100 leukocytes 1 % 0-10 Blood neutrophils automated count (number/volume) 9.1 10*3 1.8-7.8 Blood lymphocytes automated count (number/volume) 1.5 10*3 1.0-4.0 Blood monocytes automated count (number/volume) 0.7 10*3 0.0-1.0 Automated eosinophil count 0.0 10*3/uL 0.0-0.3 Automated blood basophil count (count/volume) 0.1 10*3/uL 0.0-0.1 Comprehensive metabolic panel - 09/14/16 16:00 Serum or plasma sodium measurement (moles/volume) 120 mmol/ L 135-145 Serum or plasma potassium measurement (moles/volume) 5.3 mmol/L 3.6-5.0 Serum or plasma chloride measurement (moles/volume) 84 mmol/ L 98-107 Carbon dioxide 22 mmol/L 21-32 Serum or plasma anion gap determination (moles/volume) 14 mmol/L 5-14 Serum or plasma urea nitrogen measurement (mass/volume) 43 mg/dL 7-18 Serum or plasma creatinine measurement (mass/volume) 2.52 mg /dL 0.60-1.30 Serum or plasma urea nitrogen/creatinine mass ratio 17 NRG Serum or plasma creatinine measurement with calculation of estimated glomerular filtration rate 26 NRG Serum or plasma glucose measurement (mass/volume) 806 mg/dL 70-105 Serum or plasma calcium measurement (mass/volume) 9.8 mg/dL 8.5-10.1 Serum or plasma total bilirubin measurement (mass/volume) 0.7 mg/dL 0.1-1.0 Serum or plasma alkaline phosphatase measurement (enzymatic activity/volume) 92 U/L 40-136 Serum or plasma aspartate aminotransferase measurement (enzymatic activity/ volume) 21 U/L 5-34 Serum or plasma alanine aminotransferase measurement (enzymatic activity/volume ) 28 U/L 0-55 Serum or plasma protein measurement (mass/volume) 7.8 g/dL 6.4-8.2 Serum or plasma albumin measurement (mass/volume) 3.9 g/dL 3.2-4.5 Capillary blood glucose measurement by glucometer (mass/volume) - 09/14/16 17: 34 Capillary blood glucose measurement by glucometer (mass/volume) > mg/dL 70-110 Capillary blood glucose measurement by glucometer (mass/volume) - 09/14/16 18: 29 Capillary blood glucose measurement by glucometer (mass/volume) 583 mg/dL 70-110 Capillary blood glucose measurement by glucometer (mass/volume) - 09/14/16 19: 41 Capillary blood glucose measurement by glucometer (mass/volume) 437 mg/dL 70-110 Whole blood basic metabolic panel - 09/14/16 20:08 Serum or plasma sodium measurement (moles/volume) 130 mmol/ L 135-145 Serum or plasma potassium measurement (moles/volume) 3.7 mmol/L 3.6-5.0 Serum or plasma chloride measurement (moles/volume) 94 mmol/ L 98-107 Carbon dioxide 23 mmol/L 21-32 Serum or plasma anion gap determination (moles/volume) 13 mmol/L 5-14 Serum or plasma urea nitrogen measurement (mass/volume) 38 mg/dL 7-18 Serum or plasma creatinine measurement (mass/volume) 2.06 mg /dL 0.60-1.30 Serum or plasma urea nitrogen/creatinine mass ratio 18 NRG Serum or plasma creatinine measurement with calculation of estimated glomerular filtration rate 33 NRG Serum or plasma glucose measurement (mass/volume) 439 mg/dL 70-105 Serum or plasma calcium measurement (mass/volume) 9.3 mg/dL 8.5-10.1 Capillary blood glucose measurement by glucometer (mass/volume) - 09/14/16 21: 57 Capillary blood glucose measurement by glucometer (mass/volume) 247 mg/dL 70-110 Whole blood basic metabolic panel - 09/15/16 00:26 Serum or plasma sodium measurement (moles/volume) 132 mmol/ L 135-145 Serum or plasma potassium measurement (moles/volume) 3.5 mmol/L 3.6-5.0 Serum or plasma chloride measurement (moles/volume) 96 mmol/ L 98-107 Carbon dioxide 20 mmol/L 21-32 Serum or plasma anion gap determination (moles/volume) 16 mmol/L 5-14 Serum or plasma urea nitrogen measurement (mass/volume) 34 mg/dL 7-18 Serum or plasma creatinine measurement (mass/volume) 1.81 mg /dL 0.60-1.30 Serum or plasma urea nitrogen/creatinine mass ratio 19 NRG Serum or plasma creatinine measurement with calculation of estimated glomerular filtration rate 38 NRG Serum or plasma glucose measurement (mass/volume) 275 mg/dL 70-105 Serum or plasma calcium measurement (mass/volume) 9.0 mg/dL 8.5-10.1 Capillary blood glucose measurement by glucometer (mass/volume) - 09/15/16 02: 06 Capillary blood glucose measurement by glucometer (mass/volume) 274 mg/dL 70-110 Whole blood basic metabolic panel - 09/15/16 03:07 Serum or plasma sodium measurement (moles/volume) 131 mmol/ L 135-145 Serum or plasma potassium measurement (moles/volume) 3.4 mmol/L 3.6-5.0 Serum or plasma chloride measurement (moles/volume) 97 mmol/ L 98-107 Carbon dioxide 18 mmol/L 21-32 Serum or plasma anion gap determination (moles/volume) 16 mmol/L 5-14 Serum or plasma urea nitrogen measurement (mass/volume) 33 mg/dL 7-18 Serum or plasma creatinine measurement (mass/volume) 1.68 mg /dL 0.60-1.30 Serum or plasma urea nitrogen/creatinine mass ratio 20 NRG Serum or plasma creatinine measurement with calculation of estimated glomerular filtration rate 41 NRG Serum or plasma glucose measurement (mass/volume) 283 mg/dL 70-105 Serum or plasma calcium measurement (mass/volume) 8.9 mg/dL 8.5-10.1 Serum or plasma phosphate measurement (mass/volume) - 09/15/16 03:57 Serum or plasma phosphate measurement (mass/volume) 3.9 mg/ dL 2.3-4.7 Magnesium - 09/15/16 03:57 Magnesium 1.8 mg/dL 1.8-2.4 Capillary blood glucose measurement by glucometer (mass/volume) - 09/15/16 07: 59 Capillary blood glucose measurement by glucometer (mass/volume) 185 mg/dL 70-110 Whole blood basic metabolic panel - 09/15/16 08:09 Serum or plasma sodium measurement (moles/volume) 132 mmol/ L 135-145 Serum or plasma potassium measurement (moles/volume) 3.7 mmol/L 3.6-5.0 Serum or plasma chloride measurement (moles/volume) 99 mmol/ L 98-107 Carbon dioxide 20 mmol/L 21-32 Serum or plasma anion gap determination (moles/volume) 13 mmol/L 5-14 Serum or plasma urea nitrogen measurement (mass/volume) 30 mg/dL 7-18 Serum or plasma creatinine measurement (mass/volume) 1.59 mg /dL 0.60-1.30 Serum or plasma urea nitrogen/creatinine mass ratio 19 NRG Serum or plasma creatinine measurement with calculation of estimated glomerular filtration rate 44 NRG Serum or plasma glucose measurement (mass/volume) 181 mg/dL 70-105 Serum or plasma calcium measurement (mass/volume) 9.1 mg/dL 8.5-10.1 Whole blood basic metabolic panel - 09/15/16 11:59 Serum or plasma sodium measurement (moles/volume) 131 mmol/ L 135-145 Serum or plasma potassium measurement (moles/volume) 3.9 mmol/L 3.6-5.0 Serum or plasma chloride measurement (moles/volume) 99 mmol/ L 98-107 Carbon dioxide 18 mmol/L -32 Serum or plasma anion gap determination (moles/volume) 14 mmol/L 5-14 Serum or plasma urea nitrogen measurement (mass/volume) 29 mg/dL 7-18 Serum or plasma creatinine measurement (mass/volume) 1.72 mg /dL 0.60-1.30 Serum or plasma urea nitrogen/creatinine mass ratio 17 NRG Serum or plasma creatinine measurement with calculation of estimated glomerular filtration rate 40 NRG Serum or plasma glucose measurement (mass/volume) 276 mg/dL 70-105 Serum or plasma calcium measurement (mass/volume) 9.2 mg/dL 8.5-10.1 Capillary blood glucose measurement by glucometer (mass/volume) - 09/15/16 13: 17 Capillary blood glucose measurement by glucometer (mass/volume) 308 mg/dL 70-110 Capillary blood glucose measurement by glucometer (mass/volume) - 09/15/16 17: 34 Capillary blood glucose measurement by glucometer (mass/volume) 216 mg/dL 70-110 Capillary blood glucose measurement by glucometer (mass/volume) - 09/15/16 20: 51 Capillary blood glucose measurement by glucometer (mass/volume) 409 mg/dL 70-110 Capillary blood glucose measurement by glucometer (mass/volume) - 09/15/16 23: 45 Capillary blood glucose measurement by glucometer (mass/volume) 251 mg/dL 70-110 Capillary blood glucose measurement by glucometer (mass/volume) - 09/16/16 06: 39 Capillary blood glucose measurement by glucometer (mass/volume) 241 mg/dL 70-110 Encounters ACCT No. Visit Date/Time Discharge Status Pt. Type Provider Facility Loc./Unit Complaint [id number] 09/14/2016 14:34:00 2016 11:20:00 DIS Inpatient MARLENI SHARMA MD [facility] ICU OUT OF CONTROL DIABETES,[facility] [id number] 11/18/2015 17:06:00 2015 14:45:00 DIS Inpatient MARLENI SHARMA MD [facility] 4TH HHNK,CHEST PAIN,RENAL INSUFFICIENCY, [facility] [id number] 03/20/2015 11:15:00 2015 00:01:00 DIS Outpatient ALESIA LOWRY DO [facility] RAD [id number] 04/01/2015 09:21:00 2015 12:30:00 DIS Outpatient LEISA SALIANS MD [facility] SDC [id number] 01/23/2015 13:02:00 2014 23:59:59 CLS Outpatient TRAVIS LOWRY [facility] LAB [id number] 10/18/2014 15:37:00 2014 23:59:59 CLS Outpatient ALESIA LOWRY DO [facility] RAD [id number] 06/25/2014 13:46:00 2014 23:59:59 CLS Outpatient TRAVIS LOWRY [facility] [employer] [facility] LAB [id number] 03/01/2014 14:14:00 2014 23:59:59 CLS Outpatient LOWRYTRAVIS ASH L [employer] [facility] LAB [id number] 12/22/2013 14:27:00 2013 23:59:59 CLS Outpatient [id number] 12/22/2013 14:20:00 2013 23:59:59 CLS Outpatient LOWRYDIANDRAIA L [employer] [facility] LAB [id number] 10/30/2013 14:56:00 2013 23:59:59 CLS Outpatient [id number] 10/30/2013 14:44:00 2013 23:59:59 CLS Outpatient LOWRYDIANDRAIA L [employer] [facility] LAB [id number] 10/27/2013 15:46:00 2013 23:59:59 CLS Outpatient [id number] 08/01/2013 09:44:00 2013 23:59:59 CLS Outpatient [id number] 07/07/2013 06:49:00 2013 23:59:59 CLS Outpatient [id number] 05/18/2013 12:17:00 2013 23:59:59 CLS Outpatient [id number] 06/19/2016 12:54:00 ACT Outpatient ESSENCE TRAVIS L [employer] [facility] RAD COUGH [id number] 07/24/2015 13:42:00 ACT Outpatient DIANDRA LOWRYIA L [employer] [facility] LAB [id number] 06/19/2015 00:09:00 PEN Preadmit ALESIA LOWRY DO [facility] RAD [id number] 03/29/2015 05:39:00 ACT Outpatient RITA CONTEH, LEISA Laguna [facility] PREOP
== END 2016-09-16 11:20 | disposition home or self-care (01) | DRG 639 ==
LOC: ICU 14:34
PROVIDERS: ADMIT Internal Medicine; ATTEND Internal Medicine
DX: E11.00 Type 2 diabetes mellitus with hyperosmolarity without nonketotic hyperglycemic-hyperosmolar coma (NKHHC) (principal); I25.119 Atherosclerotic heart disease of native coronary artery with unspecified angina pectoris; I10 Essential (primary) hypertension; E78.5 Hyperlipidemia, unspecified; I25.2 Old myocardial infarction; Z91.14 Patient's other noncompliance with medication regimen; Z95.5 Presence of coronary angioplasty implant and graft; Z87.891 Personal history of nicotine dependence
CPT/HCPCS: 36415; 80048; 80053; 82962; 83735; 84100; 85025

== ENCOUNTER → 2018-07-01 | Outpatient (CLI) | payer MEDICARE ==
[~2018-07-01] MED LIST changes: +ESCI20TA45 PO; +MECL-106 PO
--- NOTE | 2018-07-01 15:01 | Diagnostic Imaging Report ---
INDICATION: Abdominal cramps, constipation, diarrhea x2.5 weeks.. TECHNIQUE: Two supine view of the abdomen 2:15 p.m. CORRELATION STUDY: 03/20/2015 FINDINGS: Cholecystectomy clips in the right upper quadrant. Mild severity of fecal retention. No evidence for large fecal impaction. No abnormally dilated loops of bowel or findings to suggest high degree bowel obstruction. Vascular calcifications. Multiple calcifications in the pelvis likely phleboliths. IMPRESSION: 1. Nonobstructed appearing bowel gas pattern. Dictated by: Dictated on workstation # [id number]
== END ==
LOC: RAD 13:45
PROVIDERS: ATTEND Nurse Practitioner Family
DX: K59.00 Constipation, unspecified (principal); R19.7 Diarrhea, unspecified; R10.9 Unspecified abdominal pain; Z90.49 Acquired absence of other specified parts of digestive tract
CPT/HCPCS: 74018

== ENCOUNTER 2019-11-05 10:07 | Inpatient (IN) | payer MEDICARE ==
[~2019-11-05] VITALS: Ht 168 cm; Wt 97.3 kg
[2019-11-05] VITALS (7 sets, daily range): BP systolic 110–133; BP diastolic 69–79
[~2019-11-05 10:07] MED LIST changes: +ASPI-1238 PO; -ASPI-983 PO; -MECL-106 PO; +MECL-149 PO
[2019-11-05] MEDS ORDERED: MELATONIN 3 MG TABLET PO PRN (10:15)
[2019-11-05] MEDS ORDERED: polyethylene glycoL POWDER 17 GM (MIRALAX) PACK PO PRN (10:15)
[2019-11-05] MEDS ORDERED: PATIENT MAY USE OWN MEDS, ALL PO SCH (10:15)
[2019-11-05] MEDS ORDERED: ONDANSETRON 4 MG/2 ML (SDV) Z0FRAN IV PRN (10:15)
[2019-11-05] MEDS ORDERED: ACETAMINOPHEN 325 MG TABLET PO PRN (10:15)
[2019-11-05] MEDS ORDERED: morphine INJ 4 MG/ML 1 ML (VIAL/SYRINGE) IV PRN (10:15)
[2019-11-05] MEDS ORDERED: ENOXAPARIN 30 MG/0.3 ML (LOVENOX) SYR SC SCH (10:15)
[2019-11-05] MEDS ORDERED: ANTACID SUSP 30 ML UDC (MYLANTA) PO PRN (10:15)
[2019-11-05] MEDS ORDERED: NITROGLYCERIN 0.4 MG SL TABS BTL 25'S SL PRN (10:15)
--- NOTE | 2019-11-05 11:55 | Consultation-Cardiology ---
HPI-Cardiology Cardiology Consultation Date of Consultation 11/05/19 Date of Admission Time Seen by Provider: 11:51 Indication: chest pain HPI 64 years old gentleman with extensive cardiac history, multiple intervention the past, hypertension, hyperlipidemia, diabetes mellitus, tobaccoism. Has been having chest pain with exertion which has been worsening recently, woke up at 2 a.m. with active chest pain described it as severe in the upper left chest, did not respond to 5 sublingual nitroglycerin. Came to the emergency room. Currently he is chest pain-free. Feeling better. No further episodes of chest pain were reported. Reported that he has been compliant with his medication and still an active smoker. Admits dyspnea on exertion, no palpitation. No pedal edema. No syncope or near syncopal episodes Home Medications & Allergies Allergies: Coded Allergies: No Known Drug Allergies (Unverified , 03/29/15) Home Medication List Reviewed: Yes HHC-Bhfumu-Gofksa Hx Patient Social History Type Used: Cigarettes Recent Foreign Travel: No Recent Infectious Disease Expo: No Recent Hopitalizations: No Immunizations Up To Date Date of Influenza Vaccine: Jan 29, 2006 Past Medical History Discussed below Family Medical History Family Medical Hx Family history of coronary artery disease and hypertension Review of Systems-General Review of Systems Constitutional: no symptoms reported, see HPI EENTM: see HPI, no symptoms reported Respiratory: see HPI; No cough; dyspnea on exertion; No hemoptysis, No orthopnea, No phlegm, No short of breath, No stridor, No wheezing, No other Cardiovascular: see HPI, chest pain; No edema, No Hx of Intervention, No palpitations, No syncope, No vascular heart diseas, No other Gastrointestinal: no symptoms reported, see HPI Genitourinary: no symptoms reported, see HPI Musculoskeletal: no symptoms reported, see HPI Skin: no symptoms reported, see HPI Psychiatric/Neurological: No Symptoms Reported, See HPI Physical Exam Physical Exam Vital Signs Vital Signs - First Documented 11/05/19 11:44 Temp 36.1 Pulse 52 Resp 20 B/P (MAP) 126/78 Pulse Ox 96 O2 Delivery Nasal Cannula O2 Flow Rate 2.00 Capillary Refill : Height, Weight, BMI Height: 5'6.00" Weight: 195lbs. 2.0oz. 88.279801nj; 33.83 BMI Method:Estimated General Appearance: No Apparent Distress, WD/WN Eyes: Bilateral Eye Normal Inspection, Bilateral Eye PERRL, Bilateral Eye EOMI HEENT: PERRL/EOMI, TMs Normal, Normal ENT Inspection, Pharynx Normal, Moist Mucous Membranes Neck: Full Range of Motion, Normal Inspection, Non Tender, Supple, Carotid Bruit Respiratory: Chest Non Tender, Normal Breath Sounds, No Accessory Muscle Use, No Respiratory Distress Cardiovascular: Regular Rate, Rhythm, No Edema, No Gallop, No JVD, No Murmur, Normal Peripheral Pulses Gastrointestinal: Normal Bowel Sounds, No Organomegaly, No Pulsatile Mass, Non Tender, Soft Back: Normal Inspection, No CVA Tenderness, No Vertebral Tenderness Extremity: Normal Capillary Refill, Normal Inspection, Normal Range of Motion, Non Tender, No Calf Tenderness, No Pedal Edema Neurologic/Psychiatric: Alert, Oriented x3, No Motor/Sensory Deficits, Normal Mood/Affect Skin: Normal Color, Warm/Dry Lymphatic: No Adenopathy A/P-Cardiology Admission Diagnosis Non-ST elevation myocardial infarction Coronary artery disease Hypertension Hyperlipidemia Assessment/Plan Non-ST elevation myocardial infarction, active chest pain early in the morning, seen in [place] emergency room responded to nitroglycerin in the emergency room. First troponin was normal, second troponin was elevated. He is not having active chest pain, EKG showed right bundle branch block with ST depression in the anterior lateral leads. Discussed the management plan, recommended cardiac catheterization, patient prefer not to have the procedure done at this time, requesting conservative management. I will start him on aspirin, Plavix and Lovenox. Mild elevation in troponin, no signs of congestive heart failure, planning to evaluate 2-D echocardiogram Coronary artery disease, multiple interventions in the past, had a total of [address] Joya in [place]. Reported that he had a recent stress test with Dr. Joya. Hypertension, on multiple medication, restart home medication monitor blood pressure Hyperlipidemia, restart home medications and monitor lipids Diabetes mellitus, hold metformin for now and continue to monitor blood sugar Chronic renal insufficiency, started on IV fluid. Continue to monitor renal function Tobaccoism, educated on smoking cessation Clinical Quality Measures DVT/VTE Risk/Contraindication: Risk Factor Score Per Nursin RFS Level Per Nursing on Admit: 4+=Very High CB KENNY MD Nov 05, 2019 11:55
--- NOTE | 2019-11-05 12:17 | History & Physical-Hospitalist ---
History of Present Illness HPI/Chief Complaint Pt is a 64yoCM with a PMH of CAD with 12 stents, IDDMII, HTN, HLD, ANA LILIA not on CPAP, CKD who presented to outside ER due to chest pain. He states that he was sleeping when he was awoken by chest pain at 2 a.m. He states that he decided to seek care when it didn't resolve with nitroglycerin 4 at home. He presented to the emergency department and was treated with DuoNeb because he was wheezing and another nitroglycerin which improved his pain. He is currently chest pain- free. His EKG per the report showed no acute changes. His troponin was found to be 0.433 on admission. At this time he is currently chest pain-free. He was mildly hypoxic at 87 percent and was placed on 2 Lpm and has done well. Further workup for chest x-ray as no acute findings. He was given 2.5 mg of IV metoprolol as. He was transferred here for cardiac evaluation. describes the pain as sharp in nature that started on the left side of his chest and moved to the Center and up towards his jaw. He was short of breath and diaphoretic with it. He is unsure if he was nauseous. He states it felt like his previous symptoms when his needed stents but more severe than that. Source: patient Date Seen 11/05/19 Time Seen by a Provider: 12:10 Attending Physician Fatmata Connor MD PCP Misael Cuevas DO Referring Physician Date of Admission Nov 05, 2019 at 11:23 Home Medications & Allergies Home Medications Reviewed patient Home Medication Reconciliation performed by pharmacy medication reconciliations help desk technician and/or nursing. Patients Allergies have been reviewed. Allergies Allergies Coded Allergies No Known Drug Allergies (Unverified03/29/15) Past Gfiafkx-Urojqt-Bfqclo Hx Patient Social History Former Smoker, Quit: Jul 23, 2016 Type Used: Cigarettes Recent Foreign Travel: No Contact w/other who traveled: No Recent Hopitalizations: No Recent Infectious Disease Expo: No Immunizations Up To Date Date of Influenza Vaccine: Jan 29, 2006 Seasonal Allergies Seasonal Allergies: No Past Medical History Currently Using CPAP: No Currently Using BIPAP: No Reproductive: No History of Blood Disorders: No Review of Systems Constitutional: No chills, No fever, No malaise EENTM: no symptoms reported Respiratory: No cough; short of breath Cardiovascular: see HPI, chest pain; No edema; Hx of Intervention; No palpitations, No syncope Gastrointestinal: No abdominal pain; nausea (chronic in AM), vomiting (chronic in AM) Genitourinary: No dysuria, No frequency Musculoskeletal: no symptoms reported Skin: no symptoms reported Psychiatric/Neurological: No Symptoms Reported Physical Exam Physical Exam Vital Signs Vital Signs - First Documented 11/05/19 11:44 Temp 36.1 Pulse 52 Resp 20 B/P (MAP) 126/78 Pulse Ox 96 O2 Delivery Nasal Cannula O2 Flow Rate 2.00 Capillary Refill : Height, Weight, BMI Height: 5'6.00" Weight: 195lbs. 2.0oz. 88.560540th; 33.83 BMI Method:Estimated General Appearance: No Apparent Distress, Chronically ill, Obese HEENT: PERRL/EOMI, Moist Mucous Membranes; No Scleral Icterus (L), No Scleral Icterus (R) Neck: Normal Inspection, Supple; No JVD Respiratory: Lungs Clear, No Respiratory Distress Cardiovascular: Regular Rate, Rhythm, No Murmur Gastrointestinal: Normal Bowel Sounds, Non Tender, Soft Extremity: Normal Capillary Refill, No Calf Tenderness, No Pedal Edema Neurologic/Psychiatric: Alert, Oriented x3, Normal Mood/Affect Skin: Normal Color, Warm/Dry Results Results/Procedures Labs Patient resulted labs reviewed. Assessment/Plan Admission Diagnosis NSTEMI Admission Status: Inpatient Order (span 2 midnights) Reason for Inpatient Admission: see below Assessment and Plan NSTEMI CAD HTN HLD Now chest pain free troponin 0.433 on arrival but reportedly 3.05 on second check there ASA given in ER Nitro prn chest pain Lovenox and Plavix ordered here Patient requesting conservative measures and declined recommended cath per cardiology note Monitor on telemetry Echo ordered CKD Creatinine 2.21 at OSH Will trend Unsure of baseline Will start IVF IDDMII Will resume home Levemir and start SSI ANA LILIA Is noncompliant with CPAP DVT ppx: Lovenox as above Clinical Quality Measures DVT/VTE Risk/Contraindication: Risk Factor Score Per Nursin RFS Level Per Nursing on Admit: 4+=Very High FATMATA CONNOR MD Nov 05, 2019 12:17
[2019-11-05] MEDS: inSUlin ASPART (NovoLOG) 1 UNIT/0.01 ML (CHARGE PER UNIT) SC SCH ×3 (12:47→21:18)
[2019-11-05] MEDS: ENOXAPARIN 100 MG/1 ML (LOVENOX) SYR SC SCH (12:47)
[2019-11-05] MEDS: NS IV 1000 ML 1,000 ML IV SCH ×2 (12:48→22:23)
--- NOTE | 2019-11-05 12:48 | NUR ---
THIS NURSE CLARIFIED WITH RADHA FERNANDEZ AT [facility] THAT PT RECEIVED 100 MG OF LOVENOX IN ER.
[2019-11-05] MEDS: CARVEDILOL 3.125 MG (COREG) TABLET PO SCH (21:28)
--- NOTE | 2019-11-05 21:30 | NUR ---
WHEN TAKING PATIENT'S VITAL SIGNS, IT NOTED PATIENT'S HEART RATE 42, ON THE TELEMONITOR THEY ARE RANGING 50-60S. DR. KENNY AWARE, ORDER RECEIVED TO HOLD COREG MEDICATION FOR THE EVENING. PATIENT VOICES NO CONCERNS OR COMPLAINTS AT THIS TIME, STATES FEELS FINE. WILL CONTINUE TO MONITOR.
[2019-11-06 00:32] VITALS: BP 117/67
[2019-11-06] MEDS: ENOXAPARIN 100 MG/1 ML (LOVENOX) SYR SC SCH (00:34)
[2019-11-06] MEDS: NS IV 1000 ML 1,000 ML IV SCH (02:26)
[2019-11-06 03:28] LABS: HEMOGLOBIN 14.2 G/DL (13.3-17.7); MEAN PLATELET VOLUME 10.7 FL (7.4-10.4); WHITE BLOOD COUNT 8.7 10^3/uL (4.3-11.0)
[2019-11-06 03:42] LABS: ALBUMIN 3.9 GM/DL (3.2-4.5); POTASSIUM 4.3 MMOL/L (3.6-5.0)
[2019-11-06 03:43] LABS: CALCIUM 8.9 MG/DL (8.5-10.1)
[2019-11-06 03:44] LABS: TOTAL PROTEIN 7.2 GM/DL (6.4-8.2)
[2019-11-06 03:46] LABS: BILIRUBIN,TOTAL 0.3 MG/DL (0.1-1.0)
[2019-11-06 03:48] LABS: CREATININE SERUM 2.24 MG/DL (0.60-1.30)
[2019-11-06 03:51] LABS: MAGNESIUM 1.9 MG/DL (1.6-2.4)
[2019-11-06 04:21] VITALS: BP 140/72
[2019-11-06] MEDS: inSUlin ASPART (NovoLOG) 1 UNIT/0.01 ML (CHARGE PER UNIT) SC SCH (04:57)
[2019-11-06] MEDS: CARVEDILOL 3.125 MG (COREG) TABLET PO SCH (07:44)
[2019-11-06] MEDS ORDERED: LIDOCAINE 1% INJ 20 ML 20 ML VIAL ONE (07:51)
[2019-11-06] MEDS ORDERED: HEParin (CATH LAB) 1,000 ML IV ONE (07:51)
[2019-11-06] MEDS ORDERED: NS IV 1000 ML 1,000 ML ONE (07:51)
[2019-11-06] MEDS ORDERED: fentaNYL INJECTION 100 MCG/2 ML AMP ONE (07:54)
[2019-11-06] MEDS ORDERED: MIDAZOLAM 5 MG/5 ML (VERSED) VIAL ONE (07:54)
[2019-11-06] MEDS ORDERED: HEParin 1000 UNIT/ML (10ML VIAL) FOR BOLUS ONE (07:54)
[2019-11-06 08:00] VITALS: BP 159/84
[2019-11-06] MEDS ORDERED: ISOSORBIDE MONONITRATE 60 MG (IMDUR) TAB PO SCH (09:00)
[2019-11-06] MEDS ORDERED: CLOPIDOGREL 75 MG (PLAVIX) TABLET PO SCH (09:00)
[2019-11-06] MEDS ORDERED: ASPIRIN E.C. 81 MG (ECOTRIN) TAB PO SCH ×2 (09:00)
--- NOTE | 2019-11-06 09:22 | NUR ---
Report called to REBECCA Jarrell who will assume care at [facility]. EMS called at this time for transportation. VSS. Will continue to monitor.
--- NOTE | 2019-11-06 09:30 | Cardiology Progress Note ---
Subjective Date Seen by Provider: Nov 06, 2019 Time Seen by Provider: 09:28 Subjective/Events-last exam Patient is laying down in bed, feeling better, denied any active pain. No chest pain was reported Review of Systems General: No Chills, No Night Sweats, No Fatigue, No Malaise, No Appetite, No Other HEENT: No Head Aches, No Visual Changes, No Eye Pain, No Ear Pain, No Dysphasia, No Sinus Congestion, No Post Nasal Drip, No Sore Throat, No Other Pulmonary: No Dyspnea, No Cough, No Pleuritic Chest Pain, No Other Cardiovascular: No: Chest Pain, Palpitations, Orthopnea, Paroxysmal Noc. Dyspnea, Edema, Lt Headedness, Other Objective-Cardiology Exam Last Set of Vital Signs Vital Signs 11/05/19 11:45 O2 Flow Rate 1.00 Capillary Refill : Less Than 3 Seconds I&O Intake and Output 11/06/19 00:00 Intake Total 340 ml Output Total 500 ml Balance -160 ml Intake Oral 340 ml Output Urine Total 500 ml # Voids 1 Daily Weight Change No No General: Alert, Oriented X3, Cooperative HEENT: Atraumatic, PERRLA Neck: Supple, No JVD, No Thyromegaly Lungs: Clear to Auscultation, Normal Air Movement Heart: Regular Rate, Normal S1, Normal S2, No Murmurs Abdomen: Normal Bowel Sounds, Soft, No Tenderness, No Hepatosplenomegaly, No Masses Extremities: No Clubbing, No Cyanosis, No Edema, Normal Pulses, No Tenderness/Swelling Skin: No Rashes, No Breakdown, No Significant Lesion Neuro: Normal Gait, Normal Speech, Strength at 5/5 X4 Ext, Normal Tone, Sensation Intact Psych/Mental Status: Mental Status NL, Mood NL Results Lab Laboratory Tests 11/06/19 03:15 A/P-Cardiology Admission Diagnosis Non-ST elevation myocardial infarction Coronary artery disease Hypertension Hyperlipidemia Assessment/Plan Non-ST elevation myocardial infarction, active chest pain early in the morning, seen in [place] emergency room responded to nitroglycerin in the emergency room. Elevated troponin with EKG changes in the anterior lateral leads, patient refused cardiac catheterization yesterday, had a long discussion with the patient again today, requested to call [facility]. I discussed the management plan with Dr. Joya who accepted the patient. Arrangement will be made to transfer Congestive heart failure, acute left ventricular systolic dysfunction, ischemic cardiomyopathy with anterior wall hypokinesia, ejection fraction 40 percent Coronary artery disease, multiple interventions in the past, had a total of [address] Joya in [place]. Reported that he had a recent stress test with Dr. Joya. Hypertension, on multiple medication, restart home medication monitor blood pressure Hyperlipidemia, poorly controlled, started on Lipitor 80 mg daily Diabetes mellitus, hold metformin for now and continue to monitor blood sugar Chronic renal insufficiency, continue with IV fluid and monitor Tobaccoism, educated on smoking cessation Clinical Quality Measures DVT/VTE Risk/Contraindication: Risk Factor Score Per Nursin RFS Level Per Nursing on Admit: 4+=Very High CB KENNY MD Nov 06, 2019 09:30
--- NOTE | 2019-11-06 10:08 | NUR ---
EMS at bedside at this time to transfer pt to [place] room 224. Personal belongings with pt at time of transfer.
--- NOTE | 2019-11-06 10:47 | Discharge Summary ---
Discharge Summary Hospital Course Was the Problem List Reviewed?: Yes Problems/Dx: (1) NSTEMI (non-ST elevation myocardial infarction) Status: Acute Hospital Course Date of Admission: Nov 05, 2019 at 11:23 Admission Diagnosis : NSTEMI Family Physician/Provider: Misael Cuevas DO Date of Discharge: 11/06/19 Discharge Diagnosis: NSTEMI Hospital Course: Francisco Mckenna is a 64-year-old male with past medical history of coronary artery disease with coronary stenting who presented with chest pain. Cardiology was consulted and assisted with his care. His troponin was slightly elevated and trended up significantly. Cardiology recommended left heart catheterization. He requested transfer to [facility] in [place] and this was arranged. Labs and Pending Lab Test: Laboratory Tests 11/05/19 12:08: Glucometer 143H 11/05/19 16:07: Glucometer 158H 11/05/19 21:17: Glucometer 150H 11/06/19 03:15: White Blood Count 8.7, Red Blood Count 4.94, Hemoglobin 14.2, Hematocrit 45, Mean Corpuscular Volume 90, Mean Corpuscular Hemoglobin 29, Mean Corpuscular Hemoglobin Concent 32, Red Cell Distribution Width 14.6H, Platelet Count 271, Mean Platelet Volume 10.7H, Sodium Level 138, Potassium Level 4.3, Chloride Level 102, Carbon Dioxide Level 24, Anion Gap 12, Blood Urea Nitrogen 27H, Creatinine 2.24H, Estimat Glomerular Filtration Rate 29, BUN/Creatinine Ratio 12, Glucose Level 137H, Calcium Level 8.9, Corrected Calcium 9.0, Magnesium Level 1.9, Total Bilirubin 0.3, Aspartate Amino Transf (AST/SGOT) 100H, Alanine Aminotransferase (ALT/SGPT) 27, Alkaline Phosphatase 48, Troponin I 30.942*H, Total Protein 7.2, Albumin 3.9, Triglycerides Level 225H, Cholesterol Level 240H , LDL Cholesterol Direct 203H, VLDL Cholesterol 45H, HDL Cholesterol 34L Home Meds Active Reported Meclizine HCl 25 Mg Tablet 25 Mg PO Q8H Escitalopram Oxalate 20 Mg Tablet 20 Mg PO DAILY Alprazolam 0.5 Mg Tablet 0.5 Mg PO BID PRN Aspirin EC (Aspirin) 81 Mg Tablet.dr 81 Mg PO DAILY Humalog Kwikpen (Insulin Lispro) 100 Unit/1 Ml Insuln.pen 5 Unit SQ AC DOES NOT ALWAYS USE Valium (Diazepam) 10 Mg Tablet 10 Mg PO HS PRN Coreg (Carvedilol) 3.125 Mg Tablet 3.125 Mg PO BID Isosorbide Mononitrate ER (Isosorbide Mononitrate) 60 Mg Tab 30 Mg PO DAILY Plavix (Clopidogrel Bisulfate) 75 Mg Tablet 75 Mg PO DAILY Magnesium (Magnesium Oxide) 400 Mg Tablet 400 Mg PO DAILY Atorvastatin Calcium 80 Mg Tablet 80 Mg PO HS Fenofibrate (Fenofibrate,Micronized) 134 Mg Capsule 134 Mg PO DAILY Megared [place]-3 Krill Oil Sfgl (Krill/Om-3/Dha/Epa/Phospho/Ast) 1 Each Capsule 1,000 Mg PO DAILY Toujeo Solostar (Insulin Glargine,Hum.rec.anlog) 300 Unit/1 Ml Insuln.pen 15 Unit SQ BID Vitamin D (Ergocalciferol) 50,000 Unit Capsule 50,000 Unit PO SA Nitroquick (Nitroglycerin) 0.4 Mg Tab.subl 0.4 Mg SL UD PRN Assessment/Pt Instructions patient transferred to [facility] in [place] for cardiac catheterization. Discharge Planning: <30 minutes discharge planning Discharge Instructions Discharge Diet: Low Sodium Diet Activity as Tolerated: Yes Pneumonia Vaccine Order Indica: Yes Consultations Cardiology Discharge Physical Examination Vital Signs Vital Signs Date Time Temp Pulse Resp B/P (MAP) Pulse Ox O2 Delivery O2 Flow Rate FiO2 11/06/19 09:00 Room Air 11/06/19 08:00 36.4 64 17 159/84 (109) 94 11/05/19 11:45 1.00 General Appearance: No Apparent Distress, Obese Respiratory: Lungs Clear, Normal Breath Sounds, No Respiratory Distress Cardiovascular: Regular Rate, Rhythm, No Edema, No Murmur Gastrointestinal: Normal Bowel Sounds, Non Tender, Soft Extremity: Normal Inspection, Non Tender Skin: Normal Color, Warm/Dry Neurologic/Psychiatric: Alert, Oriented x3, No Motor/Sensory Deficits, Normal Mood/Affect Allergies: Coded Allergies: No Known Drug Allergies (Unverified , 03/29/15) Discharge Summary Date of Admission Nov 05, 2019 at 11:23 Date of Discharge Discharge Date: Nov 06, 2019 Discharge Time: 10:42 Admission Diagnosis NSTEMI Consults/Procedures Consulations Cardiology Discharge Diagnosis (1) NSTEMI (non-ST elevation myocardial infarction) Status: Acute Clinical Quality Measures DVT/VTE Risk/Contraindication: Risk Factor Score Per Nursin RFS Level Per Nursing on Admit: 4+=Very High XUAN HURLEY MD Nov 06, 2019 10:42
== END 2019-11-06 10:08 | disposition short-term general hospital (02) | DRG 280 ==
LOC: CSD 11:23
PROVIDERS: ADMIT Family Medicine; ATTEND Family Medicine
DX: I21.4 Non-ST elevation (NSTEMI) myocardial infarction (principal); I50.21 Acute systolic (congestive) heart failure; I13.0 Hypertensive heart and chronic kidney disease with heart failure and stage 1 through stage 4 chronic kidney disease, or unspecified chronic kidney disease; N18.9 Chronic kidney disease, unspecified; I25.10 Atherosclerotic heart disease of native coronary artery without angina pectoris; E11.22 Type 2 diabetes mellitus with diabetic chronic kidney disease; I25.5 Ischemic cardiomyopathy; E78.5 Hyperlipidemia, unspecified; E66.9 Obesity, unspecified; G47.33 Obstructive sleep apnea (adult) (pediatric); R09.02 Hypoxemia; F17.200 Nicotine dependence, unspecified, uncomplicated; I45.10 Unspecified right bundle-branch block; Z95.5 Presence of coronary angioplasty implant and graft; Z68.33 Body mass index [BMI] 33.0-33.9, adult; Z79.84 Long term (current) use of oral hypoglycemic drugs; Z91.19 Patient's noncompliance with other medical treatment and regimen
CPT/HCPCS: 36415; 80053; 80061; 82962; 83735; 84484; 85027; 93005; 93306

== ENCOUNTER 2020-02-24 14:33 | Emergency (ER) | payer MEDICARE ==
[~2020-02-24] VITALS: Ht 167.6 cm; Wt 93.8 kg
[2020-02-24] MEDS ORDERED: fentaNYL INJECTION 100 MCG/2 ML AMP ONE (14:43)
[2020-02-24 14:54] LABS: BASOPHILS % (AUTO) 0 % (0-10); EOSINOPHILS % (AUTO) 0 % (0-10); HEMATOCRIT 51 % (40-54); HEMOGLOBIN 16.5 g/dL (13.3-17.7); LYMPHOCYTES # (AUTO) 0.9 10^3/uL (1.0-4.0); LYMPHOCYTES % (AUTO) 5 % (12-44); MEAN CORPUSCULAR HEMOGLOBIN 29 pg (25-34); MEAN CORPUSCULAR HGB CONC 32 g/dL (32-36); MEAN CORPUSCULAR VOLUME 89 fL (80-99); MEAN PLATELET VOLUME 11.1 fL (9.0-12.2); MONOCYTES # (AUTO) 1.6 10^3/uL (0.0-1.0); MONOCYTES % (AUTO) 8 % (0-12); NEUTROPHILS # (AUTO) 17.8 10^3/uL (1.8-7.8); NEUTROPHILS % (AUTO) 87 % (42-75); PLATELET COUNT 369 10^3/uL (130-400); WHITE BLOOD COUNT 20.5 10^3/uL (4.3-11.0)
[2020-02-24 14:57] LABS: ALBUMIN 3.6 GM/DL (3.2-4.5); POTASSIUM 5.2 MMOL/L (3.6-5.0)
--- NOTE | 2020-02-24 14:57 | ED General ---
General Stated Complaint: FALL IN BATH Source of Information: Patient Exam Limitations: No Limitations History of Present Illness Date Seen by Provider: Feb 24, 2020 Time Seen by Provider: 14:52 Initial Comments Pt is a 64yoCM with a PMH of CAD with 12 stents, IDDMII, HTN, HLD, ANA LILIA not on CPAP, CKD who comes To ER by EMS from home after he was found by a family member in his bathtub. He fell in the bathtub 3 days ago and has been laying facedown in an empty bathtub for 3 days. He has pressure sores on his face, pain to his right shoulder left arm left side of his abdomen. He has several pressure wounds on him. He has some bruising and erythema to the face. EMS reported a heart rate of 130s atrial fibrillation and blood pressure initially of 84/60. Timing/Duration: 3-4 Days Severity: Moderate Allergies and Home Medications Allergies Coded Allergies: No Known Drug Allergies (Unverified , 03/29/15) Home Medications Alprazolam 0.5 Mg Tablet, 0.5 MG PO BID PRN for ANXIETY, (Reported) Aspirin 81 Mg Tablet.dr, 81 MG PO DAILY, (Reported) Atorvastatin Calcium 80 Mg Tablet, 80 MG PO HS, (Reported) Carvedilol 3.125 Mg Tablet, 3.125 MG PO BID, (Reported) Clopidogrel Bisulfate 75 Mg Tablet, 75 MG PO DAILY, (Reported) Diazepam 10 Mg Tablet, 10 MG PO HS PRN for INSOMNIA, (Reported) Ergocalciferol 50,000 Unit Capsule, 50,000 UNIT PO Sa, (Reported) Escitalopram Oxalate 20 Mg Tablet, 20 MG PO DAILY, (Reported) Fenofibrate,Micronized 134 Mg Capsule, 134 MG PO DAILY, (Reported) Insulin Glargine,Hum.rec.anlog 300 Unit/1 Ml Insuln.pen, 15 UNIT SQ BID, (Reported) Insulin Lispro 100 Unit/1 Ml Insuln.pen, 5 UNIT SQ AC, (Reported) DOES NOT ALWAYS USE Isosorbide Mononitrate 60 Mg Tab, 30 MG PO DAILY, (Reported) Krill/Om-3/Dha/Epa/Phospho/Ast 1 Each Capsule, 1,000 MG PO DAILY, (Reported) Magnesium Oxide 400 Mg Tablet, 400 MG PO DAILY, (Reported) Meclizine HCl 25 Mg Tablet, 25 MG PO Q8H, (Reported) Nitroglycerin 0.4 Mg Tab.subl, 0.4 MG SL UD PRN for CHEST PAIN, (Reported) Patient Home Medication List Home Medication List Reviewed: Yes Review of Systems Review of Systems Constitutional: see HPI EENTM: see HPI Respiratory: no symptoms reported Cardiovascular: no symptoms reported Genitourinary: no symptoms reported Musculoskeletal: see HPI Skin: see HPI Psychiatric/Neurological: No Symptoms Reported Hematologic/Lymphatic: No Symptoms Reported Past Xvoczsz-Fdzafo-Bwuykm Hx Patient Social History Type Used: Cigarettes Former Smoker, Quit: Jul 23, 2016 Recent Hopitalizations: No Immunizations Up To Date Date of Influenza Vaccine: Jan 29, 2006 Seasonal Allergies Seasonal Allergies: No Past Medical History Surgeries: Yes Respiratory: No Currently Using CPAP: No Currently Using BIPAP: No Cardiac: Yes Coronary Artery Disease, High Cholesterol, Hypertension Neurological: No Reproductive Disorders: No Genitourinary: No Renal Failure Gastrointestinal: No Musculoskeletal: No Endocrine: Yes Diabetes, Insulin dep HEENT: No Cancer: No Psychosocial: No Integumentary: No Blood Disorders: No Physical Exam Vital Signs Vital Signs - First Documented 02/24/20 14:33 Temp 36.2 Pulse 124 B/P (MAP) 128/86 (100) Capillary Refill : Height, Weight, BMI Height: 5'6.00" Weight: 195lbs. 2.1oz. [age]yo; 33.83 BMI Method:Estimated General Appearance: No Apparent Distress, WD/WN, Other (Alert and oriented knows he is at the hospital and can recall his medication list. On arrival here his heart rate is 134 atrial fibrillation blood pressure 137/91, rectal temperature 37.1. He has pressure sore to the left side of the face, crusting on the lips, a few broken front teeth. He has a right shoulder that he keeps externally rotated, maceration to the left anterior chest wall and to the dorsal left hand, necrotic area of skin to the anterior medial right thigh and a similar to the distal anterior left thigh. The right toes are cyanotic. There is no palpable pulse in either foot.) Eyes: Bilateral Eye Normal Inspection, Bilateral Eye PERRL, Bilateral Eye EOMI (.) HEENT: Other (Erythema and scabbing of various parts of the face.) Neck: Full Range of Motion, Normal Inspection Respiratory: No Accessory Muscle Use, No Respiratory Distress Cardiovascular: Regular Rate, Rhythm, Normal Peripheral Pulses Gastrointestinal: Normal Bowel Sounds, Non Tender, Soft Extremity: Slow Capillary Refill, Other (See above; there is cyanosis to the right first and second toe. There is a lacy reticular type rash to the medial and dorsal aspect of the right foot. I am not able to Doppler any blood flow in the dorsalis pedis artery or posterior tibial artery of either foot. However, the left foot has normal color despite being cold as well. I suspect given his history of 12 coronary stents he has quite a bit of vasculopathy and I do not know how much of this is his chronic peripheral arterial disease) Neurologic/Psychiatric: Alert, Oriented x3 Skin: Normal Color, Warm/Dry, Other (Lesions as above) Focused Exam Lactate Level 02/24/20 14:35: Lactic Acid Level 4.03*H 02/24/20 16:30: Lactic Acid Level 3.36*H Lactic Acid Level Laboratory Tests Test 02/24/20 14:35 02/24/20 16:30 Lactic Acid Level 4.03 MMOL/L (0.50-2.00) *H 3.36 MMOL/L (0.50-2.00) *H Procedures/Interventions Lumen: triple Central Line Procedure: betadine prep, sterile drapes applied, sterile dressing applied Position: internal jugular (L) Anesthesia: Lidocaine Volume Anesthetic (ccs): 4 Post Position: sutured, good blood return, position confirmed w/ CXR Progress/Results/Core Measures Suspected Sepsis SIRS Temperature: Pulse: Respiratory Rate: Laboratory Tests 02/24/20 14:35: White Blood Count 20.5H Blood Pressure / Mean: 02/24/20 14:35: Lactic Acid Level 4.03*H 02/24/20 16:30: Lactic Acid Level 3.36*H Laboratory Tests 02/24/20 14:35: Creatinine 2.12H, INR Comment 1.2, Platelet Count 369, Total Bilirubin 0.9 Results/Orders Lab Results Laboratory Tests Test 02/24/20 14:35 02/24/20 14:50 02/24/20 16:30 02/24/20 16:31 Range/Units White Blood Count 20.5 H 4.3-11.0 10^3/uL Red Blood Count 5.75 H 4.30-5.52 10^6/uL Hemoglobin 16.5 13.3-17.7 g/dL Hematocrit 51 40-54 % Mean Corpuscular Volume 89 80-99 fL Mean Corpuscular Hemoglobin 29 25-34 pg Mean Corpuscular Hemoglobin Concent 32 32-36 g/dL Red Cell Distribution Width 15.4 H 10.0-14.5 % Platelet Count 369 130-400 10^3/uL Mean Platelet Volume 11.1 9.0-12.2 fL Immature Granulocyte % (Auto) 1 % Neutrophils (%) (Auto) 87 H 42-75 % Lymphocytes (%) (Auto) 5 L 12-44 % Monocytes (%) (Auto) 8 0-12 % Eosinophils (%) (Auto) 0 0-10 % Basophils (%) (Auto) 0 0-10 % Neutrophils # (Auto) 17.8 H 1.8-7.8 10^3/uL Lymphocytes # (Auto) 0.9 L 1.0-4.0 10^3/uL Monocytes # (Auto) 1.6 H 0.0-1.0 10^3/uL Eosinophils # (Auto) 0.0 0.0-0.3 10^3/uL Basophils # (Auto) 0.0 0.0-0.1 10^3/uL Immature Granulocyte # (Auto) 0.1 0.0-0.1 10^3/uL Neutrophils % (Manual) 92 % Lymphocytes % (Manual) 4 % Monocytes % (Manual) 4 % Eosinophils % (Manual) 0 % Basophils % (Manual) 0 % Band Neutrophils 0 % Blood Morphology Comment NORMAL Prothrombin Time 15.8 H 12.2-14.7 SEC INR Comment 1.2 0.8-1.4 Activated Partial Thromboplast Time 30 24-35 SEC Urine Color YELLOW Urine Clarity CLEAR Urine pH 5.5 5-9 Urine Specific [place] >=1.030 1.016-1.022 Urine Protein 3+ H NEGATIVE Urine Glucose (UA) 2+ H NEGATIVE Urine Ketones NEGATIVE NEGATIVE Urine Nitrite NEGATIVE NEGATIVE Urine Bilirubin 1+ H NEGATIVE Urine Urobilinogen 0.2 < = 1.0 MG/DL Urine Leukocyte Esterase NEGATIVE NEGATIVE Urine RBC (Auto) 3+ H NEGATIVE Urine RBC 0-2 /HPF Urine WBC 0-2 /HPF Urine Squamous Epithelial Cells 0-2 /HPF Urine Crystals NONE /LPF Urine Bacteria FEW H /HPF Urine Casts NONE /LPF Urine Mucus NEGATIVE /LPF Urine Culture Indicated NO Sodium Level 140 135-145 MMOL/L Potassium Level 5.2 H 3.6-5.0 MMOL/L Chloride Level 105 98-107 MMOL/L Carbon Dioxide Level 18 L 21-32 MMOL/L Anion Gap 17 H 5-14 MMOL/L Blood Urea Nitrogen 65 H 7-18 MG/DL Creatinine 2.12 H 0.60-1.30 MG/DL Estimat Glomerular Filtration Rate 31 BUN/Creatinine Ratio 31 Glucose Level 407 *H 70-105 MG/DL Lactic Acid Level 4.03 *H 3.36 *H 0.50-2.00 MMOL/L Calcium Level 9.2 8.5-10.1 MG/DL Corrected Calcium 9.5 8.5-10.1 MG/DL Total Bilirubin 0.9 0.1-1.0 MG/DL Aspartate Amino Transf (AST/SGOT) 177 H 5-34 U/L Alanine Aminotransferase (ALT/SGPT) 94 H 0-55 U/L Alkaline Phosphatase 56 40-136 U/L Total Creatine Kinase 04325 H 30-200 U/L Myoglobin 35613.0 H 10.0-92.0 NG/ML Troponin I 0.544 *H <0.028 NG/ML Total Protein 7.6 6.4-8.2 GM/DL Albumin 3.6 3.2-4.5 GM/DL Urine Opiates Screen NEGATIVE NEGATIVE Urine Oxycodone Screen NEGATIVE NEGATIVE Urine Methadone Screen NEGATIVE NEGATIVE Urine Propoxyphene Screen NEGATIVE NEGATIVE Urine Barbiturates Screen NEGATIVE NEGATIVE Ur Tricyclic Antidepressants Screen NEGATIVE NEGATIVE Urine Phencyclidine Screen NEGATIVE NEGATIVE Urine Amphetamines Screen NEGATIVE NEGATIVE Urine Methamphetamines Screen NEGATIVE NEGATIVE Urine Benzodiazepines Screen POSITIVE H NEGATIVE Urine Cocaine Screen NEGATIVE NEGATIVE Urine Cannabinoids Screen POSITIVE H NEGATIVE Blood Gas Puncture Site LEFT RADIAL Blood Gas Patient Temperature 37.1 Arterial Blood pH 7.36 L 7.37-7.43 Arterial Blood Partial Pressure CO2 37 35-45 MMHG Arterial Blood Partial Pressure O2 64 L 79-93 MMHG Arterial Blood HCO3 20 L 23-27 MMOL/L Arterial Blood Total CO2 21.1 21.0-31.0 MMOL/L Arterial Blood Oxygen Saturation 87 L 94-100 % Arterial Blood Base Excess -4.5 L -2.5-2.5 MMOL/L Rafael Test POSITIVE Blood Gas Ventilator Setting NO Blood Gas Inspired Oxygen N/A Coronavirus 2019 (JOSE CARLOS) Negative Negative My Orders Orders - 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 Cbc With Automated Diff (02/24/20 14:46) Comprehensive Metabolic Panel (02/24/20 14:46) Ua Culture If Indicated (02/24/20 14:46) Drug Screen Stat (Urine) (02/24/20 14:46) Creatine Kinase (02/24/20 14:46) Myoglobin Serum (02/24/20 14:46) Blood Culture (02/24/20 14:46) Lactic Acid Analyzer (02/24/20 14:46) Ekg Tracing (02/24/20 14:46) Troponin I (02/24/20 14:46) Ct Head/Face/Cervical Wo (02/24/20 14:46) Ct Chest/Abdomen/Pelvis Wo (02/24/20 14:46) Shoulder, Right, 3 Views (02/24/20 14:46) Forearm, Left, 2 Views (02/24/20 14:46) Humerus, Left, 2 Views (02/24/20 14:46) Protime With Inr (02/24/20 14:49) Partial Thromboplastin Time (02/24/20 14:49) Fentanyl Injection (Sublimaze Injection (02/24/20 15:00) Lactated Ringers (Lr 1000 Ml Iv Solution (02/24/20 15:00) Ondansetron Injection (Zofran Injectio (02/24/20 15:00) Arterial Blood Gas (02/24/20 14:54) Manual Differential (02/24/20 14:35) Ns (Ivpb) (Sodium C... W/Diltiazem Iv Fo (02/24/20 16:00) Diltiazem Injection (Cardizem Injection) (02/24/20 16:00) Enoxaparin Injection (Lovenox Injection) (02/24/20 16:00) Heparin Drip 74434 Unit/500ml (Heparin (02/24/20 16:30) Heparin (Bolus Per Protocol) (Heparin (B (02/24/20 16:30) Protime With Inr (02/24/20 16:16) Cbc No Diff (02/24/20 16:16) Cbc No Diff (02/27/20 05:00) Cbc No Diff (03/01/20 05:00) Platelet Count (02/25/20 05:00) Platelet Count (02/26/20 05:00) Platelet Count (02/27/20 05:00) Platelet Count (02/28/20 05:00) Platelet Count (02/29/20 05:00) Platelet Count (03/01/20 05:00) Platelet Count (03/02/20 05:00) Platelet Count (03/03/20 05:00) Platelet Count (03/04/20 05:00) Platelet Count (03/05/20 05:00) Partial Thromboplastin Time (02/24/20 20:16) Protime With Inr (02/27/20 05:00) Protime With Inr (02/28/20 05:00) Protime With Inr (02/29/20 05:00) Protime With Inr (03/01/20 05:00) Protime With Inr (03/02/20 05:00) Protime With Inr (03/03/20 05:00) Protime With Inr (03/04/20 05:00) Protime With Inr (03/05/20 05:00) Protime With Inr (03/06/20 05:00) Protime With Inr (03/07/20 05:00) Initiate Heparin Full Protocol (02/24/20 16:16) Covid 19 Inhouse Test (02/24/20 16:31) Chest 1 View, Ap/Pa Only (02/24/20 17:17) Medications Given in ED Current Medications Medications Dose Ordered Sig/Ramirez Route Start Time Stop Time Status Last Admin Dose Admin Diltiazem HCl 10 mg ONCE ONCE IVP 02/24/20 16:00 02/24/20 16:01 DC 02/24/20 16:14 10 MG Fentanyl Citrate 50 mcg ONCE ONCE IVP 02/24/20 15:00 02/24/20 15:01 DC 02/24/20 14:47 50 MCG Vital Signs/I&O 02/24/20 02/24/20 14:33 16:36 Temp 36.2 Pulse 124 124 B/P (MAP) 128/86 (100) 133/112 Capillary Refill : Diagnostic Imaging Diagonstic Imaging: Xray, CT Comments NAME: [facility] REC#: [id number] PT STATUS: REG ER : 1955 PHYSICIAN: HARSHA SILVERMAN APRN ADMIT DATE: 02/24/20/ER Draft Date of Exam:02/24/20 CT HEAD/FACE/CERVICAL WO PROCEDURE: CT head, face, and cervical spine without contrast. TECHNIQUE: Multiple contiguous axial images were obtained through the head, neck, and facial bones without the use of intravenous contrast. Sagittal and coronal reformations through the cervical spine and facial bones were also performed. Auto Exposure Controls were utilized during the CT exam to meet ALARA standards for radiation dose reduction. INDICATION: Fall. COMPARISON: No prior study is available for comparison. CT head: Ventricles and sulci are within normal limits. No sulcal effacement or midline shift is identified. No acute intra-axial or extra-axial hemorrhage is detected. Cisterns are patent. Visualized paranasal sinuses are clear. IMPRESSION: No acute intracranial process is detected. CT cervical spine: Curvature is normal. There is retrolisthesis of C3 on C4. Severe multilevel degenerative disc disease is noted. There is significant disc space narrowing and marginal osteophyte formation at all levels of the cervical spine. No fracture is identified. Odontoid is intact. IMPRESSION: Severe cervical spondylosis. No acute bony abnormality is detected. CT face: The mandible is intact. Zygomatic arches are intact. The maxillary sinus cerda and nasal bones appear intact. No orbital wall fracture is seen. IMPRESSION: No facial bone fracture is detected. Dictated on workstation # [id number] Dict: 02/24/20 1541 Trans: 02/24/20 1546 [facility] [id number] Interpreted by: TRAVIS LOW MD Electronically signed by: NAME: [facility] REC#: [id number] PT STATUS: REG ER : 1955 PHYSICIAN: HARSHA SILVERMAN APRN ADMIT DATE: 02/24/20/ER Draft Date of Exam:02/24/20 CT CHEST/ABDOMEN/PELVIS WO PROCEDURE: CT chest, abdomen, and pelvis without contrast. TECHNIQUE: Multiple contiguous axial images were obtained through the chest, abdomen, and pelvis without the use of intravenous contrast. Auto Exposure Controls were utilized during the CT exam to meet ALARA standards for radiation dose reduction. INDICATION: Trauma, fall. CT chest: The heart is enlarged. There are coronary arterial calcifications. No pericardial fluid or hemothorax is identified. There is parenchymal consolidation in the left upper lobe. Contusion cannot be excluded. There is no pneumothorax. Bony structures appear intact. IMPRESSION: There is an area of consolidation in the left upper lobe consistent with pneumonia or contusion. No other significant abnormality is seen. CT abdomen and pelvis: Liver and spleen are unremarkable. Pancreas is unremarkable. No adrenal hematoma or renal injury is seen. Aorta is unremarkable. There is no hemoperitoneum. Bowel loops are unremarkable. Bony structures appear nonacute. IMPRESSION: No evidence of abdominal or pelvic visceral injury. Dictated on workstation # [id number] Dict: 02/24/20 1544 Trans: 02/24/20 1552 PJE [id number] Interpreted by: TRAVIS LOW MD Electronically signed by: NAME: [facility] REC#: [id number] PT STATUS: REG ER : 1955 PHYSICIAN: HARSHA SILVERMAN APRN ADMIT DATE: 02/24/20/ER Draft Date of Exam:02/24/20 SHOULDER, RIGHT, 3 VIEWS INDICATION: Right shoulder pain. TIME OF EXAM: 3:08 p.m. EXAMINATION: Three views of the right shoulder were obtained. FINDINGS: Glenohumeral and acromioclavicular alignment are normal. Acromiohumeral space is normal. No fracture or dislocation is seen. There does appear to be glenohumeral joint degenerative changes with joint space narrowing. There are subchondral cysts in the glenoid. IMPRESSION: Degenerative changes of the glenohumeral joint. No acute bony abnormality is detected. Dictated on workstation # [id number] Dict: 02/24/20 1536 Trans: 02/24/20 1540 PJE [id number] Interpreted by: TRAVIS LOW MD Electronically signed by: NAME: [facility] REC#: [id number] PT STATUS: REG ER : 1955 PHYSICIAN: HARSHA SILVERMAN APRN ADMIT DATE: 02/24/20/ER Draft Date of Exam:02/24/20 FOREARM, LEFT, 2 VIEWS INDICATION: Fall with left arm pain. TIME OF EXAM: 3:14 p.m. EXAMINATION: Multiple views of the left forearm were obtained. FINDINGS: Alignment at the elbow and wrist is normal. Radius and ulna are intact. No fracture is seen. IMPRESSION: No acute bony abnormality is detected. Dictated on workstation # [id number] Dict: 02/24/20 1538 Trans: 02/24/20 1541 PJ [id number] Interpreted by: TRAVIS LOW MD Electronically signed by: NAME: [facility] REC#: [id number] PT STATUS: [facility] ER : 1955 PHYSICIAN: HARSHA SILVERMAN APRN ADMIT DATE: 02/24/20/ER Draft Date of Exam:02/24/20 HUMERUS, LEFT, 2 VIEWS INDICATION: Left arm pain and injury. TIME OF EXAM: 3:12 p.m. EXAMINATION: Two views of the humerus demonstrate normal alignment at the shoulder and elbow. Humerus is intact. No fracture is seen. IMPRESSION: No acute bony abnormality is detected. Dictated on workstation # [id number] Dict: 02/24/20 1537 Trans: 02/24/20 1540 PJE [id number] Interpreted by: TRAVIS LOW MD Electronically signed by: Departure Communication (Admissions) 2165-patient needed a second IV but we were unable to establish 1. We are giving heparin drip. Given Cardizem drip at 5 mg an hour. Decided to proceed with central line placement ultrasound-guided on the left. He converted to normal sinus rhythm with a rate of 74 during this. Oxygen is 99% on 2 L. He is now receiving his third liter of LR. Given the concern for possible acute arterial occlusion of the right leg versus a complex regional pain syndrome with the associated reticular lacy rash on top of chronic peripheral arterial disease is a possibility. I spoke with Dr. Samuel from cardiology here. Recommends transfer to a facility with vascular services. Impression Primary Impression: Rhabdomyolysis Additional Impressions: Atrial fibrillation with RVR Arterial occlusion Disposition: XFER SHT-TRM HOSP Condition: Critical Departure-Patient Inst. Referrals: ALESIA LOWRY DO (PCP/Family) Primary Care Physician HARSHA SILVERMAN APRN Feb 24, 2020 14:56
[2020-02-24 14:58] LABS: CALCIUM 9.2 MG/DL (8.5-10.1)
[2020-02-24 14:59] LABS: CLARITY,URINE CLEAR; COLOR,URINE YELLOW; GLUCOSE, URINE (UA) 2+ (NEGATIVE); KETONES,URINE NEGATIVE (NEGATIVE); LEUKOCYTE ESTERASE ,URINE NEGATIVE (NEGATIVE); NITRITE,URINE NEGATIVE (NEGATIVE); PH,URINE 5.5 (5-9); PROTEIN,URINE 3+ (NEGATIVE); TOTAL PROTEIN 7.6 GM/DL (6.4-8.2)
[2020-02-24 14:59] LABS: ABG BASE EXCESS -4.5 MMOL/L (-2.5-2.5); ABG OXYGEN SATURATION 87 % (94-100); ABG PCO2 37 MMHG (35-45); ABG PH 7.36 (7.37-7.43); ABG PO2 64 MMHG (79-93); ABG TCO2 21.1 MMOL/L (21.0-31.0)
[2020-02-24 15:00] LABS: ALLENS TEST POSITIVE; PATIENT TEMP 37.1; VENTILATOR NO
[2020-02-24] MEDS ORDERED: fentaNYL INJECTION 100 MCG/2 ML AMP IVP ONE (15:00)
[2020-02-24] MEDS ORDERED: ONDANSETRON 4 MG/2 ML (SDV) Z0FRAN IVP ONE (15:00)
[2020-02-24 15:01] LABS: BILIRUBIN,TOTAL 0.9 MG/DL (0.1-1.0)
[2020-02-24 15:03] LABS: CREATININE SERUM 2.12 MG/DL (0.60-1.30)
[2020-02-24 15:11] LABS: BACTERIA,URINE FEW /HPF; BILIRUBIN,URINE 1+ (NEGATIVE); RBC,URINE 0-2 /HPF; SQUAMOUS EPITHELIAL CELL,UR 0-2 /HPF; WBC,URINE 0-2 /HPF
[2020-02-24 15:14] LABS: AMPHETAMINE SCREEN, URINE NEGATIVE (NEGATIVE); BARBITURATE SCREEN URINE NEGATIVE (NEGATIVE); BENZODIAZEPINES SCREEN URINE POSITIVE (NEGATIVE); CANNABINOID SCREEN, URINE POSITIVE (NEGATIVE); COCAINE SCREEN URINE NEGATIVE (NEGATIVE); METHADONE STAT NEGATIVE (NEGATIVE); METHAMPHETAMINE SCREEN URINE S NEGATIVE (NEGATIVE); OPIATE SCREEN URINE NEGATIVE (NEGATIVE); OXYCODONE STAT NEGATIVE (NEGATIVE); PROPOXYPHENE STAT NEGATIVE (NEGATIVE); TRICYCLIC ANTIDEPRESSANTS SCRE NEGATIVE (NEGATIVE)
[2020-02-24 15:16] LABS: BAND NEUTROPHILS 0 %; BASOPHILS % (MANUAL) 0 %; EOSINOPHILS % (MANUAL) 0 %; LYMPHOCYTES % (MANUAL) 4 %; MONOCYTES % (MANUAL) 4 %; NEUTROPHILS % (MANUAL) 92 %; RBC MORPH NORMAL
[2020-02-24 15:19] LABS: INR 1.2 (0.8-1.4); PROTHROMBIN TIME PATIENT 15.8 SEC (12.2-14.7)
--- NOTE | 2020-02-24 15:40 | Diagnostic Imaging Report ---
INDICATION: Right shoulder pain. TIME OF EXAM: 3:08 p.m. EXAMINATION: Three views of the right shoulder were obtained. FINDINGS: Glenohumeral and acromioclavicular alignment are normal. Acromiohumeral space is normal. No fracture or dislocation is seen. There does appear to be glenohumeral joint degenerative changes with joint space narrowing. There are subchondral cysts in the glenoid. IMPRESSION: Degenerative changes of the glenohumeral joint. No acute bony abnormality is detected. Dictated by: Dictated on workstation # [id number]
--- NOTE | 2020-02-24 15:41 | Diagnostic Imaging Report ---
INDICATION: Left arm pain and injury. TIME OF EXAM: 3:12 p.m. EXAMINATION: Two views of the humerus demonstrate normal alignment at the shoulder and elbow. Humerus is intact. No fracture is seen. IMPRESSION: No acute bony abnormality is detected. Dictated by: Dictated on workstation # [id number]
--- NOTE | 2020-02-24 15:42 | Diagnostic Imaging Report ---
INDICATION: Fall with left arm pain. TIME OF EXAM: 3:14 p.m. EXAMINATION: Multiple views of the left forearm were obtained. FINDINGS: Alignment at the elbow and wrist is normal. Radius and ulna are intact. No fracture is seen. IMPRESSION: No acute bony abnormality is detected. Dictated by: Dictated on workstation # [id number]
--- NOTE | 2020-02-24 15:46 | Diagnostic Imaging Report ---
PROCEDURE: CT head, face, and cervical spine without contrast. TECHNIQUE: Multiple contiguous axial images were obtained through the head, neck, and facial bones without the use of intravenous contrast. Sagittal and coronal reformations through the cervical spine and facial bones were also performed. Auto Exposure Controls were utilized during the CT exam to meet ALARA standards for radiation dose reduction. INDICATION: Fall. COMPARISON: No prior study is available for comparison. CT head: Ventricles and sulci are within normal limits. No sulcal effacement or midline shift is identified. No acute intra-axial or extra-axial hemorrhage is detected. Cisterns are patent. Visualized paranasal sinuses are clear. IMPRESSION: No acute intracranial process is detected. CT cervical spine: Curvature is normal. There is retrolisthesis of C3 on C4. Severe multilevel degenerative disc disease is noted. There is significant disc space narrowing and marginal osteophyte formation at all levels of the cervical spine. No fracture is identified. Odontoid is intact. IMPRESSION: Severe cervical spondylosis. No acute bony abnormality is detected. CT face: The mandible is intact. Zygomatic arches are intact. The maxillary sinus cerda and nasal bones appear intact. No orbital wall fracture is seen. IMPRESSION: No facial bone fracture is detected. Dictated by: Dictated on workstation # [id number]
[2020-02-24] MEDS: LACTATED RINGERS 1,000 ML IV SCH ×4 (15:47→18:32)
--- NOTE | 2020-02-24 15:54 | Diagnostic Imaging Report ---
PROCEDURE: CT chest, abdomen, and pelvis without contrast. TECHNIQUE: Multiple contiguous axial images were obtained through the chest, abdomen, and pelvis without the use of intravenous contrast. Auto Exposure Controls were utilized during the CT exam to meet ALARA standards for radiation dose reduction. INDICATION: Trauma, fall. CT chest: The heart is enlarged. There are coronary arterial calcifications. No pericardial fluid or hemothorax is identified. There is parenchymal consolidation in the left upper lobe. Contusion cannot be excluded. There is no pneumothorax. Bony structures appear intact. IMPRESSION: There is an area of consolidation in the left upper lobe consistent with pneumonia or contusion. No other significant abnormality is seen. CT abdomen and pelvis: Liver and spleen are unremarkable. Pancreas is unremarkable. No adrenal hematoma or renal injury is seen. Aorta is unremarkable. There is no hemoperitoneum. Bowel loops are unremarkable. Bony structures appear nonacute. IMPRESSION: No evidence of abdominal or pelvic visceral injury. Dictated by: Dictated on workstation # [id number]
[2020-02-24] MEDS ORDERED: ENOXAPARIN 100 MG/1 ML (LOVENOX) SYR SC ONE (16:00)
[2020-02-24] MEDS ORDERED: HEParin DRIP 25000 UNIT/500ML 500 ML IV SCH (16:30)
[2020-02-24] MEDS ORDERED: HEParin 1000 UNIT/ML (10ML VIAL) FOR BOLUS IV SCH (16:30)
--- NOTE | 2020-02-24 17:18 | NUR ---
Pt converted to sinus rhythm at this time. Pulse 75, BP 108/82.
--- NOTE | 2020-02-24 17:51 | Diagnostic Imaging Report ---
Chest 1 view, AP/PA only. Indication: Central line placement. Comparison: CT chest from earlier the same day. Findings: Left IJ central venous catheter has tip terminating in the upper SVC. Left upper lobe opacities are compatible with the subtotal consolidations seen on CT chest. No pleural effusion or pneumothorax. Azygous fissure is present on the right. Normal cardiomediastinal silhouette. Impression: 1. No pneumothorax status post central line placement. 2. Left upper lobe subtotal consolidations are better evaluated on CT chest of earlier the same day. Dictated by: Dictated on workstation # [id number]
[2020-02-24] MEDS ORDERED: PIPERACILLIN SODIUM/TAZOBACTAM 4.5 GM in NS (IVPB) 100 ML IV ONE (18:15)
[2020-02-24 18:44] VITALS: BP 157/97
== END 2020-02-24 18:46 | disposition short-term general hospital (02) ==
LOC: EDUNIT# 14:33 → ER 14:36
DX: T79.6XXA Traumatic ischemia of muscle, initial encounter (principal); I48.20 Chronic atrial fibrillation, unspecified; I70.90 Unspecified atherosclerosis; E11.9 Type 2 diabetes mellitus without complications; E78.00 Pure hypercholesterolemia, unspecified; I10 Essential (primary) hypertension; Z87.891 Personal history of nicotine dependence; Z20.828 Contact with and (suspected) exposure to other viral communicable diseases; Z79.82 Long term (current) use of aspirin; Z79.4 Long term (current) use of insulin; W18.2XXA Fall in (into) shower or empty bathtub, initial encounter
CPT/HCPCS: 36556; 51702; 70450; 70486; 71045; 71250; 72125; 73030; 73060; 73090; 74176; 80053; 80306; 81000; 82550; 82805; 82962; 83605; 83874; 84484; 85007; 85027; 85610; 85730; 87040; 87077; 93005; 99285; U0002; 36415; 87635